=== PATIENT | female | born 1985 | race Caucasian/White ===

== ENCOUNTER 2019-05-27 17:14 | Emergency (ER) | payer BC, SELFPAY ==
[2019-05-27 17:22] VITALS: BP 126/83; PULSE 83; RESP 18; TEMP 36.6; O2SAT 96; BMI 35.4
--- NOTE | 2019-05-27 17:38 | ED_ITS ---
Entered by Yoselin Johnson, acting as scribe for HPI - Skin/Abscess/Foreign Bdy General: Chief complaint: Skin/Abscess/Foreign Body Stated complaint: head/neck pain Time Seen by Provider: 05/27/19 17:37 Source: patient Mode of arrival: ambulatory Limitations: no limitations History of Present Illness: HPI narrative: 33 yo female presents to ED with complaints of an abscess on the L side of her chin. She said she first noticed this 2 days ago. The patient states had a bump that she thought was a pimple but she said her normal remedies have not helped. She said she had spoke with Dr Novak and he wanted her to be a direct admit, but upon arrival she was instructed to come to the ED. She said she has not been able to eat because of the pain in her L lower jaw. complaint: abscess/boil Onset (ago): day(s) (2) Tetanus up to date: unsure Location: face Severity: moderate Quality: burning Pain Consistency: constant Relieving factors: none Exacerbating factors: movement Context: none Associated symptoms: Reports no associated symptoms; Deny chills, fever(s) or vomiting Treatments prior to arrival: attempted to drain pus at home and OTC topical medication Review of Systems General: Reports: 10 or more systems reviewed and unremarkable except in HPI and below Const: Denies: fever or chills Eyes: Denies: change in vision ENMT: Reports: mouth pain and facial/sinus pain Card: Denies: chest pain Resp: Denies: shortness of breath GI: Denies: abdominal pain, vomiting or diarrhea : Denies: difficulty urinating Musc: Denies: back pain or joint pain Skin/Breast: Reports: new lesion and non-healing lesion Neuro: Denies: headache Psych: Denies: depression Endo: Denies: excessive urination Ken/Lymph: Denies: easy bruising All/Imm: Denies: hives PFSH ED PFSH: Statuses (acute, chronic, etc) shown below reflect problem list status as previously entered and may not be historically accurate Medical History Cyst of face (Acute) Family History Denies family history of Anesthesia complication Bleeding disorder Social History Smoking and tobacco status: never smoked Second hand smoke exposure: No Alcohol intake: never Desire information about substance/drug rehabilitation?: No Adopted: No Caregiver/support person: Yes Lives independently: Yes Household members: spouse Housing: House Marital status: Highest education level completed: High School Graduate service: No Current occupational status: employed Current occupational exposures/hazards: No Pets and animals: Yes Pets & animals: dog(s) History of recent travel: No Sexually active: Yes Current gender identity: Female Nidhi/Mormonism: Restorationism Special nidhi needs: No Agree to transfusion: No Financial difficulty paying for basics: Decline to Answer Female Reproductive History: Para: 5 Spontaneous abortions: No Physical Exam Const: COMMON NORMALS: no apparent distress and healthy appearing HENMT: COMMON NORMALS: normocephalic and external nose normal HEAD & SCALP: normocephalic NOSE: external nose normal and no nasal discharge (nasal dischage) OTHER: No sign of Margarita's angina. Does have a 2 cm abscess over anterior chin. No difficulty swallowing or airway involvement Eye: COMMON NORMALS: PERRL PUPIL: Yes PERRL Neck/C-Spine: COMMON NORMALS: full ROM and no lymphadenopathy Chest: COMMONS NORMALS: inspection of chest normal Resp: COMMON NORMALS: normal respiratory effort and clear to auscultation bilaterally AUSCULTATION: clear to auscultation bilaterally Cardio: COMMON NORMALS: regular rate and regular rhythm RATE: regular rate RHYTHM: regular rhythm GI: COMMON NORMALS: soft to palpation PALPATION: Yes soft Extremity: COMMON NORMALS: normal to inspection, full ROM and normal capillary refill Psych: COMMON NORMALS: mental status grossly normal and cooperative Skin: COMMON NORMALS: no rashes or lesions noted GENERAL SKIN EXAM: no rashes or lesions noted Procedures Abscess I/D Site: face Local Anesthetic: lidocaine 1% and with epi Amount of anesthesia used (mL): 6 Technique: incised with #11 blade Amount of fluid expressed (mL): 3 Irrigation: No Packing used?: none Course Vital Signs: Vital signs: Vital Signs Temperature 98 F 05/27/19 17:22 Pulse Rate 83 05/27/19 17:22 Respiratory Rate 16 05/27/19 19:45 Blood Pressure 126/83 05/27/19 17:22 Pulse Oximetry 100 05/27/19 19:45 MDM - Skin/Abscess/Foreign Bdy MDM Narrative: Medical decision making narrative: Patient presents here with abscess to her chin. She has no signs of airway involvement no signs of Mario's angina. Patient given IV antibiotics here and will prescribe clindamycin for home. Patient is to follow-up with ENT in 3 to 5 days return if worsening. Lab Data: Labs: Lab Results 05/27/19 05/27/19 05/27/19 Range/Units 17:46 17:46 18:02 WBC 12.0 H (4.0-10.0) 10^3/ uL RBC 4.93 (4.1-5.3) 10^6/u L Hgb 14.6 (11.5-15.3) g/dL Hct 43.4 (37.0-47.0) % MCV 88.0 (81-99) fL MCH 29.6 (28.0-34.0) pg MCHC 33.6 (30.0-36.0) g/dL RDW 11.8 L (12.1-15.1) % Plt Count 291 (130-400) 10^3/c mm MPV 9.4 (7.4-10.4) fL Neut % (Auto) 69.6 % Lymph % (Auto) 17.3 % [place] % (Auto) 9.7 % Eos % (Auto) 2.3 % Baso % (Auto) 0.5 % Neut # (Auto) 8.4 H (1.8-7.7) 10^3/u L Lymph # (Auto) 2.1 (0.8-4.8) 10^3/u L [place] # (Auto) 1.2 H (0.2-0.9) 10^3/u L Eos # (Auto) 0.3 (0.0-0.8) 10^3/u L Baso # (Auto) 0.1 (0.0-0.1) 10^3/u L Nucleated RBC % (a uto) 0 % Nucleated RBCs # 0.0 /100WBC Sodium 137 (136-145) mmol/L Potassium 4.0 (3.5-5.1) mmol/L Chloride 102 (98-107) mmol/L Carbon Dioxide 21 L (22-29) mmol/L Anion Gap 18.0 (5-19) BUN 12 (6-20) mg/dL Creatinine 0.8 (0.5-0.9) mg/dL GFR Calculation 83.1 L (90-130) mL/min Glucose 94 (74-109) mg/dL Calculated Osmolal ity 280 L (285-295) mOsm/k g Calcium 9.9 (8.5-10.5) mg/dL HCG, Qual Negative (Negative) Discharge Plan Discharge Patient Disposition: Home, Self-Care Clinical Impression: Abscess Condition: Stable Prescriptions: New clindamycin HCl 300 mg capsule 300 mg PO Q8H 10 Days Qty: 30 RF: 0 Floyd 5-325 mg tablet 1 tab PO Q6H PRN (Reason: pain) Qty: 14 RF: 0 Discharge Orders: Discharge Order (Routine); Ordered 05/27/19 Ordered By: Kourtney Aldridge Referrals: Jake Bello M.D [Physician] - 4-7 days Jacques Alfredo [Primary Care Provider] - Discharge Diet: Advance as tolerated Discharge Activity: Resume usual activity Patient Instructions: Abscess (ED) Coding Level of Care Code ED Latex Foam Worker for Chg Fwd Exam Problem Focused The documentation recorded by the Alex fields Valerie R, accurately reflects the service I personally performed and the decisions made by Oly parisi Korby, MD May 27, 2019 17:14
--- NOTE | 2019-05-27 17:42 | CTR_ITS ---
PROCEDURE INFORMATION: Exam: CT Neck With Contrast Exam date and time: 05/27/2019 6:24 PM Age: 33 years old Clinical indication: Pain; Other: Chin abscess TECHNIQUE: Imaging protocol: Computed tomography images of the neck with intravenous contrast. Total DLP: 726.4 mGy-cm Radiation optimization: All CT scans at this facility use at least one of these dose optimization techniques: automated exposure control; mA and/or kV adjustment per patient size (includes targeted exams where dose is matched to clinical indication); or iterative reconstruction. Contrast material: OMNI 300; Contrast volume: 95 ml; Contrast route: IV; COMPARISON: US thyroid [id number] 09/20/2014 9:08 AM FINDINGS: Nasopharynx: See Soft Tissues Finding. Oropharynx: Unremarkable. No significant tonsillar enlargement. Hypopharynx: Unremarkable Larynx: Unremarkable. Normal epiglottis. Retropharyngeal space: Unremarkable. Submandibular/Parotid glands: Normal. Glands are normal in size. Thyroid: Normal. No enlarged or calcified nodules. Lymph nodes: Subcentimeter lymph nodes are noted in the neck especially in the submandibular region. Trachea: Visualized trachea is unremarkable. Lungs: Unremarkable as visualized. Bones/joints: Unremarkable. No acute fracture. Soft tissues: There is induration of the subcutaneous fat especially in the left submandibular region and along the left mandible. It does appear there is cellulitis. No peripherally enhancing fluid collection or abscess is identified. There is some asymmetry of the soft tissues at the base of the tongue on the right image 46. This may reflect some mild enlargement of the adenoids or early mass. Please correlate clinically. CT/CT neck w con* [id number] IMPRESSION: 1. Subcentimeter lymph nodes. Probable cellulitis adjacent to the mandible. No abscess. No bony destruction or osteomyelitis. 2. Mild asymmetry of the base of the tongue on the right may reflect mild enlargement of the adenoids however a small mass cannot be excluded. Please correlate clinically. Radiation Dose CTDIVOL = (mGy): DLP = 726.4 (mGy-cm)
[2019-05-27 18:01] LABS: Basophils # 0.1 10^3/uL (0.0-0.1); Basophils % 0.5 %; Eosinophils # 0.3 10^3/uL (0.0-0.8); Eosinophils % 2.3 %; Hematocrit 43.4 % (37.0-47.0); Hemoglobin 14.6 g/dL (11.5-15.3); Lymphocytes # 2.1 10^3/uL (0.8-4.8); Lymphocytes % 17.3 %; Mean Corpuscular HGB Conc 33.6 g/dL (30.0-36.0); Mean Corpuscular Hemoglobin 29.6 pg (28.0-34.0); Mean Platelet Volume 9.4 fL (7.4-10.4); Monocytes # 1.2 10^3/uL (0.2-0.9); Monocytes % 9.7 %; Neutrophils # 8.4 10^3/uL (1.8-7.7); Neutrophils % 69.6 %; Nucleated Red Blood Cells % 0 %; Platelet Count 291 10^3/cmm (130-400); Red Blood Count 4.93 10^6/uL (4.1-5.3); Red Cell Distribution Width 11.8 % (12.1-15.1)
[2019-05-27 18:15] LABS: Blood Urea Nitrogen 12 mg/dL (6-20); Calcium 9.9 mg/dL (8.5-10.5); Carbon Dioxide 21 mmol/L (22-29); Chloride 102 mmol/L (98-107); Glomerular Filtration Rate 83.1 mL/min (90-130); Glucose 94 mg/dL (74-109); Osmolality Calculated 280 mOsm/kg (285-295); Sodium 137 mmol/L (136-145)
[2019-05-27 18:20] LABS: HCG Qualitative Urine. Negative (Negative)
[2019-05-27] MEDS: iohexol 300 mg/mL 100 mL Btl 95 ML IV (19:19)
[2019-05-27] MEDS: sodium chloride 0.9% 1,000 ML 999 ML IV (19:44)
[2019-05-27 19:45] VITALS: RESP 16; O2SAT 100
[2019-05-27] MEDS: morphine 4 mg/mL SDV 1 mL IVP (19:45)
[2019-05-27] MEDS: ondansetron 2 mg/ML SDV 2 mL 4 MG IVP (19:45)
[2019-05-27] MEDS: lidocaine-prilocaine cream 5 gm 1 APPLIC TOPICAL (20:19)
[2019-05-27] MEDS: clindamycin 900 MG/50 ML PREMIX 100 MG IV (20:20)
[2019-05-27] MEDS: HYDROcodone-acetaminophen 5-325 mg Tablet 1 TAB PO (21:25)
[2019-05-27 22:07] VITALS: BP 134/81; PULSE 89; RESP 16; TEMP 37.1; O2SAT 99
== END 2019-05-27 21:28 | disposition home or self-care (01) ==
PROVIDERS: Emergency Provider Emergency Medicine; Family Provider Physician Assistant; PCP Physician Assistant
DX: L02.01 Cutaneous abscess of face (principal)
CPT/HCPCS: 10060; 70491; 80048; 81025; 85025; 96360; 96365; 96374; 99281; J2270; J2405; J3490; J7030; Q9967

== ENCOUNTER 2019-05-28 14:35 | Inpatient (IN) | payer BC, SELFPAY ==
[2019-05-28 10:59] VITALS: BMI 35.4
[2019-05-28] MEDS: sodium chloride 0.9% 1,000 ML 100 ML IV (11:13)
[2019-05-28 11:15] VITALS: BP 137/86; PULSE 81; RESP 18; TEMP 37.3; O2SAT 100
[2019-05-28] MEDS: clindamycin 900 MG/50 ML PREMIX 100 MG IV (11:35)
[2019-05-28] MEDS: HYDROcodone-acetaminophen 5-325 mg Tablet PO ×4 (11:40→22:30)
[2019-05-28 11:58] LABS: OR HCG Qualitative Urine Negative (Negative)
[2019-05-28 14:03] LABS: Basophils % 0.3 %; Eosinophils # 0.2 10^3/uL (0.0-0.8); Eosinophils % 1.7 %; Hematocrit 40.5 % (37.0-47.0); Hemoglobin 13.6 g/dL (11.5-15.3); Lymphocytes # 2.2 10^3/uL (0.8-4.8); Lymphocytes % 18.5 %; Mean Corpuscular HGB Conc 33.6 g/dL (30.0-36.0); Mean Corpuscular Hemoglobin 29.4 pg (28.0-34.0); Mean Corpuscular Volume 87.7 fL (81-99); Mean Platelet Volume 9.7 fL (7.4-10.4); Monocytes # 1.3 10^3/uL (0.2-0.9); Neutrophils # 8.1 10^3/uL (1.8-7.7); Neutrophils % 68.1 %; Nucleated Red Blood Cells % 0 %; Platelet Count 279 10^3/cmm (130-400); Red Blood Count 4.62 10^6/uL (4.1-5.3); Red Cell Distribution Width 11.7 % (12.1-15.1); White Blood Count 11.9 10^3/uL (4.0-10.0)
[2019-05-28 14:18] LABS: Alanine Aminotransferase 27 U/L (0-33); Albumin Level 4.1 g/dL (3.5-5.2); Alkaline Phosphatase 103 IU/L (35-105); Anion Gap 15.9 (5-19); Aspartate Amino Transferase 20 U/L (0-32); Blood Urea Nitrogen 8 mg/dL (6-20); C Reactive Protein 43.3 mg/L (0.0-4.9); Calcium 9.5 mg/dL (8.5-10.5); Carbon Dioxide 24 mmol/L (22-29); Chloride 102 mmol/L (98-107); Globulin 3.6 g/dL (1.3-4.6); Glomerular Filtration Rate 83.1 mL/min (90-130); Glucose 94 mg/dL (74-109); Potassium 3.9 mmol/L (3.5-5.1); Sodium 138 mmol/L (136-145); Total Bilirubin 0.5 mg/dL (0.15-1.2); Total Protein 7.7 g/dL (6.6-8.7)
--- NOTE | 2019-05-28 14:20 | PC.NURSE ---
The clindamycin was given as ordered by Dr Bautista at 1135am. I was unable to chart this medicine until much later and had them been discontinued by the hospitalist and another antibiotic ordered. hospitalist aware of medicine given.
--- NOTE | 2019-05-28 14:39 | PM.HP ---
Providers/Chief Complaint Admitting Physician: Robbi Higuera MD Primary Care Provider: Jacques Alfredo Chief Complaint: CYST WITH CELLULITIS History of Present Illness Cee Villalpando is a 33 year old female with no significant past medical history who presents to the emergency room due to a boil on her left chin that has evolved into the left chin, mandible, neck erythema, swelling, tenderness. Patient states that she has recurrent boils, that are typically managed as outpatient through simple I&D's. She does state 2 years ago she had a significant soft tissue infection resulting in bacteremia. States that on Friday, she noticed a pimple on her left chin, she stated that it slowly evolved into a boil, with surrounding erythema, swelling, tenderness. She presented to urgent care who referred her to the surgery clinic, where Dr. Payan recommended for her to be admitted. But due to unavailable hospital beds, patient was redirected to the emergency room, she saw the emergency room physician, who lanced the boil on her chin, kept it open, and advised her to continue clindamycin and follow-up with her primary care physician. However patient states that she had some drainage, from the area, the area of swelling, erythema, tenderness evolved to her left mandible down her left neck. Currently she is having a lot of pain and tenderness and swelling in that region. She is having some dysphasia, and a sour taste in her mouth, no pain with range of motion of the neck, no fevers, no chills, no nausea, no vomiting. Review of Systems Const: Denies: fever or chills Eyes: Denies: change in vision ENMT: Denies: throat pain or mouth pain Card: Denies: chest pain or palpitations Resp: Denies: shortness of breath GI: Denies: abdominal pain or vomiting : Denies: flank pain or difficulty urinating Musc: Denies: neck pain Skin/Breast: Reports: rash Neuro: Reports: headache Endo: Denies: excessive urination or excessive thirst Medications/Allergies Allergies Allergy/AdvReac Type Severity Reaction Status Date / Time diphenhydramine Allergy ALGY-Rash Verified 05/27/19 17:31 [From Benadryl] Penicillins Allergy ALGY-Rash Verified 05/27/19 17:31 PFSH Acute PFSH: Statuses (acute, chronic, etc) shown below reflect problem list status as previously entered and may not be historically accurate Medical History (Updated 05/28/19 @ 14:44 by Robbi Higuera MD) Cyst of face (Acute) Family History (Updated 05/28/19 @ 14:45 by Robbi Higuera MD) Other CAD (coronary artery disease) Denies family history of Anesthesia complication Bleeding disorder Social History Smoking and tobacco status: never smoked Second hand smoke exposure: No Alcohol intake: never Desire information about substance/drug rehabilitation?: No Adopted: No Caregiver/support person: Yes Lives independently: Yes Household members: spouse Housing: House Marital status: Highest education level completed: High School Graduate service: No Current occupational status: employed Current occupational exposures/hazards: No Pets and animals: Yes Pets & animals: dog(s) History of recent travel: No Sexually active: Yes Current gender identity: Female Nidhi/Restoration: Presybeterian Special nidhi needs: No Agree to transfusion: No Financial difficulty paying for basics: Decline to Answer Female Reporductive History: Para: 5 Spontaneous abortions: No Vitals/I&O/Wt Last Vital Signs Temp 99.1 F 05/28/19 11:15 Pulse 81 05/28/19 11:15 Resp 18 05/28/19 11:15 BP 137/86 05/28/19 11:15 Pulse Ox 100 05/28/19 11:15 05/27/19 05/28/19 05/28/19 22:59 06:59 14:59 Intake Total 50 / 50 Balance 50 / 50 Weight last 48 hrs Weight 90.718 kg Physical Exam Const: COMMON NORMALS: no apparent distress and oriented x3 GENERAL APPEARANCE: cooperative and comfortable HENMT: COMMON NORMALS: normocephalic HEAD & SCALP: normocephalic Eye: COMMON NORMALS: PERRL, EOMs intact bilaterally and no papilledema GENERAL EYE: normal appearance of both eyes PUPIL: Yes PERRL DIRECT OPHTHALMOSCOPY: Yes no papilledema Neck/C-Spine: COMMON NORMALS: full ROM, no lymphadenopathy, no JVD and thyroid normal THYROID: thyroid normal Lymph: LYMPHATIC: no lymphadenopathy noted Resp: COMMON NORMALS: normal respiratory effort, no retractions, no use of accessory muscles and clear to auscultation bilaterally AUSCULTATION: clear to auscultation bilaterally Cardio: COMMON NORMALS: no JVD, regular rate, regular rhythm, S1 normal heart sound, S2 normal heart sound, no gallops, no clicks and no murmurs RATE: regular rate RHYTHM: regular rhythm HEART SOUNDS: S1 normal and S2 normal GI: COMMON NORMALS: normal to inspection, nondistended, normoactive bowel sounds, soft to palpation, non-tender and no hepatosplenomegaly PALPATION: Yes soft and Yes no hepatosplenomegaly Extremity: COMMON NORMALS: normal to inspection, full ROM and no pedal edema Neuro: COMMON NORMALS: oriented x3, CN's II-XII intact bilaterally, moves all extremities and no focal motor deficits Psych: COMMON NORMALS: mental status grossly normal, thought process normal and cooperative THOUGHT PROCESS: normal thought process Skin: NARRATIVE SKIN EXAM: Under the chin, 3 x 3 cm open boil, with surrounding erythema, swelling, tenderness extending to the left mandible, down the left neck Data : 05/28/19 13:38 05/28/19 13:38 Micro: Microbiology 05/28/19 13:49 Blood Culture - Preliminary Blood SPECIMEN COLLECTED 05/28/19 13:38 Blood Culture - Preliminary Blood SPECIMEN COLLECTED Other CT: Radiologist's impression: Nasopharynx: See Soft Tissues Finding. Oropharynx: Unremarkable. No significant tonsillar enlargement. Hypopharynx: Unremarkable Larynx: Unremarkable. Normal epiglottis. Retropharyngeal space: Unremarkable. Submandibular/Parotid glands: Normal. Glands are normal in size. Thyroid: Normal. No enlarged or calcified nodules. Lymph nodes: Subcentimeter lymph nodes are noted in the neck especially in the submandibular region. Trachea: Visualized trachea is unremarkable. Lungs: Unremarkable as visualized. Bones/joints: Unremarkable. No acute fracture. Soft tissues: There is induration of the subcutaneous fat especially in the left submandibular region and along the left mandible. It does appear there is cellulitis. No peripherally enhancing fluid collection or abscess is identified. There is some asymmetry of the soft tissues at the base of the tongue on the right image 46. This may reflect some mild enlargement of the adenoids or early mass. Please correlate clinically. CT/CT neck w con* [id number] IMPRESSION: 1. Subcentimeter lymph nodes. Probable cellulitis adjacent to the mandible. No abscess. No bony destruction or osteomyelitis. 2. Mild asymmetry of the base of the tongue on the right may reflect mild enlargement of the adenoids however a small mass cannot be excluded. Please correlate clinically. A&P Assessment and plan (1) Cellulitis and abscess of neck: -Abscess and cellulitis under the chin, extending to the left mandible down the left neck -Based on how rapidly evolving, concerns for deep tissue infection -CT did show subcentimeter lymph nodes, cellulitis adjacent to the mandible, mild asymmetry at the base of the tongue on the right plan: -I have spoken to Dr. Ansari who is graciously offered to see the patient -Broad-spectrum antibiotics vancomycin and Zosyn -Blood cultures -Monitor clinical status -Keep her n.p.o. until evaluation by ENT Status: Acute Code(s): L03.221 - Cellulitis of neck; L02.11 - Cutaneous abscess of neck Attestations Medical Necessity Statement*: Patient requires hospitalization, inpatient, greater than 2 midnights for left neck cellulitis Coding Level of Care Code Acute Flight Reservations Manager for [facility] Diagnoses Cellulitis and abscess of neck L03.221; L02.11
[2019-05-28 14:50] LABS: Erythrocyte Sedimentation Rate 24 mm/hr (0-15)
[2019-05-28 15:17] VITALS: BP 126/79; PULSE 79; RESP 18; TEMP 36.9; O2SAT 99
--- NOTE | 2019-05-28 15:18 | PC.NURSE ---
REPORT GIVEN TO JAZZ PT TRANSFERRED TO ROOM [id number] WHEELCHAIR AND CARE TURNED OVER.
--- NOTE | 2019-05-28 17:04 | PM.CONSULT ---
Providers/Reason For Consult Consulting Physican/Specialty*: Dr. Vidal Ansari MD Reason for Consult*: Assess airway Attending Physician: Robbi Higuera MD Primary Care Provider: Jacques Alfredo History of Present Illness History of Present Illness Cee Villalpando is a 33 year old female who was well until 05/25/2019 when she developed a boil on her left chin that gradually became red, indurated, and tender over several days. She was seen in the ER where she had incision and drainage of the mass which reportedly had some pus present. She was then admitted and placed on IV Vancomycin and Zosyn. I was consulted to evaluate her airway. The patient has some difficulty swallowing, but is o/w without c/o today. She denies any shortness of breath, difficulty opening her mouth, chest pain, or other related symptoms. Review of Systems General: Reports: 10 or more systems reviewed and unremarkable except in HPI and below Meds/Allergies Home Medications and Allergies Allergies Allergy/AdvReac Type Severity Reaction Status Date / Time diphenhydramine Allergy ALGY-Rash Verified 05/27/19 17:31 [From Benadryl] Penicillins Allergy ALGY-Rash Verified 05/27/19 17:31 Current Medications Current Medications Generic Name Dose Route Start Last Admin Trade Name Freq PRN Reason Stop Dose Admin Hydrocodone Bitart/Acetaminophen 0 tab 05/28/19 11:20 05/28/19 16:57 Hulen 5-325 Mg PO 1 tab Q6H PRN Administration MODERATE PAIN Sodium Chloride 1,000 mls @ 100 mls/hr 05/28/19 11:00 05/28/19 11:13 Sodium Chloride 0.9% IV 100 mls/hr .Q10H BRITTNY Administration Imipenem/Cilastatin Sodium 500 100 mls @ 200 mls/hr 05/28/19 14:00 05/28/19 14:00 mg/ Sodium Chloride IV 200 mls/hr Q6H BRITTNY Administration Protocol Vancomycin HCl 1,500 mg/ 250 mls @ 166.667 mls/hr 05/28/19 16:00 05/28/19 16:17 Sodium Chloride IV 166.7 mls/hr Q12H BRITTNY Administration PFSH Acute PFSH: Statuses (acute, chronic, etc) shown below reflect problem list status as previously entered and may not be historically accurate Medical History Cyst of face (Acute) Family History (Updated 05/28/19 @ 14:45 by Robbi Higuera MD) Other CAD (coronary artery disease) Denies family history of Anesthesia complication Bleeding disorder Social History Smoking and tobacco status: never smoked Second hand smoke exposure: No Alcohol intake: never Desire information about substance/drug rehabilitation?: No Adopted: No Caregiver/support person: Yes Lives independently: Yes Household members: spouse Housing: House Marital status: Highest education level completed: High School Graduate service: No Current occupational status: employed Current occupational exposures/hazards: No Pets and animals: Yes Pets & animals: dog(s) History of recent travel: No Sexually active: Yes Current gender identity: Female Nidhi/Caodaism: Shinto Special nidhi needs: No Agree to transfusion: No Financial difficulty paying for basics: Decline to Answer Female Reporductive History: Date of last menstrual period: 05/05/19 Para: 5 Spontaneous abortions: No Vitals/I&O/Wt Last Vital Signs Temp 98.5 F 05/28/19 15:17 Pulse 79 05/28/19 15:17 Resp 18 05/28/19 15:17 BP 126/79 05/28/19 15:17 Pulse Ox 99 05/28/19 15:17 05/28/19 05/28/19 05/28/19 06:59 14:59 22:59 Intake Total 50 / 50 Balance 50 / 50 Weight last 48 hrs Weight 90.718 kg Physical Exam HENMT: COMMON NORMALS: normocephalic, external ears normal and external nose normal HEAD & SCALP: normal to inspection and normocephalic FACE & SINUS: normal facial exam (There is a 3cm area of induration, swelling, tenderness of left neck.) NOSE: external nose normal EXTERNAL EAR: Yes external ears normal Eye: COMMON NORMALS: conjunctivae normal CONJUNCTIVA: Yes conjunctivae normal Neck/C-Spine: GENERAL: Yes mass (Swelling, induration, and erythema of the submental neck as above.) Data Micro: Micro: Microbiology 05/28/19 13:49 Blood Culture - Pr eliminary Blood SPECIMEN [facility] ANTIONETTE 05/28/19 13:38 Blood Culture - Pr eliminary Blood SPECIMEN [facility] ANTIONETTE Imaging^: Other CT: My impression: Neck CT with IV contrast: Airway widely patent; no evidence of abscess collection; o/w as indicated on radiology report Other Data: Other data: Procedure 1: Written informed consent was obtained from the patient; the left submental swelling was prepped with alcohol, and was aspirated with a 22 gauge needle; no purulent material was obtained; the patient tolerated the procedure well, and there were no complications. Procedure 2: A flexible fiberoptic nasopharyngolaryngoscope was passed down the patient's right nasal cavity, and was used to make an inspection of the nasopharynx, oralpharynx, hypopharynx, and larynx; there was no noted swelling, and the airway was widely patent; the nasopharynx, oralpharynx, hypopharynx and larynx were normal without swelling or obstruction; the patient tolerated the procedure well, and there were no complications. A&P Additional A&P Information Impression: Left submental cellulitis with no evidenece of abscess formation by Neck CT or by needle aspiration Plan: I agree with the current antibiotic plan I recommend f/u neck CT after 48 hours of antibiotics to r/o abscess development Continue IV antibiotics until infection nearly resolved - then place on oral analog for an additional 10-14 days I will follow with you Consult Attestations Medical Necessity Statement: I was consulted to r/o an occult abscess and assess the patient's airway Coding Level of Care Code Acute Etl Manager for [facility]
[2019-05-28 20:00] VITALS: BP 115/77; PULSE 80; RESP 18; TEMP 36.8; O2SAT 98
[2019-05-28] MEDS: cetirizine 10 mg Tablet PO (23:38)
[2019-05-29] VITALS (7 sets, daily range): BP systolic 108–120; BP diastolic 57–78; PULSE 63–83; RESP 17–18; TEMP 36.6–36.9; O2SAT 96–98
[2019-05-29] MEDS: sodium chloride 0.9% 1,000 ML 100 ML IV (00:27)
[2019-05-29] MEDS: HYDROcodone-acetaminophen 5-325 mg Tablet PO ×4 (05:01→23:05)
[2019-05-29 06:42] LABS: Basophils % 0.3 %; Eosinophils # 0.4 10^3/uL (0.0-0.8); Eosinophils % 4.1 %; Hematocrit 38.8 % (37.0-47.0); Lymphocytes # 2.7 10^3/uL (0.8-4.8); Lymphocytes % 30.7 %; Mean Corpuscular HGB Conc 33.5 g/dL (30.0-36.0); Mean Corpuscular Hemoglobin 30.7 pg (28.0-34.0); Mean Corpuscular Volume 91.5 fL (81-99); Mean Platelet Volume 9.4 fL (7.4-10.4); Monocytes # 0.9 10^3/uL (0.2-0.9); Monocytes % 9.8 %; Neutrophils # 4.8 10^3/uL (1.8-7.7); Neutrophils % 54.6 %; Nucleated Red Blood Cells % 0 %; Platelet Count 256 10^3/cmm (130-400); Red Blood Count 4.24 10^6/uL (4.1-5.3); Red Cell Distribution Width 11.8 % (12.1-15.1); White Blood Count 8.7 10^3/uL (4.0-10.0)
[2019-05-29 06:58] LABS: Anion Gap 15.7 (5-19); Blood Urea Nitrogen 8 mg/dL (6-20); Calcium 9.2 mg/dL (8.5-10.5); Carbon Dioxide 23 mmol/L (22-29); Chloride 104 mmol/L (98-107); Glucose 141 mg/dL (74-109); Osmolality Calculated 286 mOsm/kg (285-295); Potassium 3.7 mmol/L (3.5-5.1); Sodium 139 mmol/L (136-145)
--- NOTE | 2019-05-29 14:10 | PM.PN ---
Subjective Subjective: Interval history: Morning patient denies fevers, chills, states that area of erythema and swelling has gone down, but still quite tender, having itching on during her chin, but overall has improved, drinking well, eating well Vitals/I&O/Wt Last Vital Signs Temp 98.0 F 05/29/19 11:39 Pulse 78 05/29/19 11:39 Resp 18 05/29/19 11:39 BP 113/57 05/29/19 11:39 Pulse Ox 97 05/29/19 11:39 05/28/19 05/29/19 05/29/19 22:59 06:59 14:59 Intake Total 1350 / 1500 100 / 1600 360 / 360 Output Total 600 / 600 600 / 600 Balance 1350 / 1500 -500 / 1000 -240 / -240 Weight last 48 hrs Weight 90.855 kg Weight 90.718 kg Physical Exam Const: COMMON NORMALS: no apparent distress and oriented x3 GENERAL APPEARANCE: cooperative and comfortable Neck/C-Spine: COMMON NORMALS: full ROM, no lymphadenopathy, no JVD and thyroid normal THYROID: thyroid normal Resp: COMMON NORMALS: normal respiratory effort, no retractions, no use of accessory muscles and clear to auscultation bilaterally AUSCULTATION: clear to auscultation bilaterally Cardio: COMMON NORMALS: no JVD, regular rate, regular rhythm, S1 normal heart sound, S2 normal heart sound, no gallops, no clicks and no murmurs RATE: regular rate RHYTHM: regular rhythm HEART SOUNDS: S1 normal and S2 normal GI: COMMON NORMALS: normal to inspection, nondistended, normoactive bowel sounds, soft to palpation, non-tender and no hepatosplenomegaly PALPATION: Yes soft and Yes no hepatosplenomegaly Extremity: COMMON NORMALS: normal to inspection, full ROM and no pedal edema Neuro: COMMON NORMALS: oriented x3 Skin: NARRATIVE SKIN EXAM: Under the chin, 3 x 3 cm open boil, with surrounding erythema, swelling, tenderness extending to the left mandible, down the left neck Data : 05/29/19 06:17 05/29/19 06:17 Micro: Microbiology 05/28/19 13:49 Blood Culture - Preliminary Blood SPECIMEN COLLECTED 05/28/19 13:38 Blood Culture - Preliminary Blood SPECIMEN COLLECTED A&P Assessment and plan (1) Cellulitis and abscess of neck: -Abscess and cellulitis under the chin, extending to the left mandible down the left neck -CT did show subcentimeter lymph nodes, cellulitis adjacent to the mandible, mild asymmetry at the base of the tongue on the right -Clinically has improved plan: -Dr. Ansari is on consult -Broad-spectrum antibiotics vancomycin and primaxin -Blood cultures -Monitor clinical status Status: Acute Code(s): L03.221 - Cellulitis of neck; L02.11 - Cutaneous abscess of neck Attestations Medical Necessity Statement*: Patient requires continued hospitalization due to cellulitis requiring IV antibiotic treatment Coding Level of Care Code Acute Guest Services for [facility] Fwd Diagnoses Cellulitis and abscess of neck L03.221; L02.11
[2019-05-30 03:18] LABS: Basophils % 0.5 %; Eosinophils # 0.5 10^3/uL (0.0-0.8); Eosinophils % 5.8 %; Hematocrit 38.6 % (37.0-47.0); Hemoglobin 12.8 g/dL (11.5-15.3); Lymphocytes # 2.7 10^3/uL (0.8-4.8); Lymphocytes % 34.3 %; Mean Corpuscular HGB Conc 33.2 g/dL (30.0-36.0); Mean Corpuscular Hemoglobin 29.4 pg (28.0-34.0); Mean Corpuscular Volume 88.7 fL (81-99); Mean Platelet Volume 9.3 fL (7.4-10.4); Monocytes # 0.8 10^3/uL (0.2-0.9); Monocytes % 9.6 %; Neutrophils # 3.9 10^3/uL (1.8-7.7); Neutrophils % 49.3 %; Nucleated Red Blood Cells % 0 %; Platelet Count 284 10^3/cmm (130-400); Red Blood Count 4.35 10^6/uL (4.1-5.3); Red Cell Distribution Width 11.5 % (12.1-15.1); White Blood Count 7.8 10^3/uL (4.0-10.0)
[2019-05-30 03:41] LABS: Anion Gap 15.3 (5-19); Blood Urea Nitrogen 12 mg/dL (6-20); Calcium 9.2 mg/dL (8.5-10.5); Carbon Dioxide 25 mmol/L (22-29); Chloride 105 mmol/L (98-107); Glomerular Filtration Rate 83.1 mL/min (90-130); Glucose 108 mg/dL (74-109); Osmolality Calculated 289 mOsm/kg (285-295); Potassium 4.3 mmol/L (3.5-5.1); Sodium 141 mmol/L (136-145)
[2019-05-30 03:42] LABS: Vancomycin Trough 16.1 ug/mL (10-15)
[2019-05-30 04:00] VITALS: BP 108/72; PULSE 76; RESP 18; TEMP 37.2; O2SAT 97
[2019-05-30] MEDS: HYDROcodone-acetaminophen 5-325 mg Tablet PO ×2 (05:28→11:19)
--- NOTE | 2019-05-30 07:14 | CTR_ITS ---
PROCEDURE INFORMATION: Exam: CT Neck With Contrast Exam date and time: 05/30/2019 7:25 AM Age: 33 years old Clinical indication: Cellulitis of neck; Additional info: Follow up upper neck and chin cellulitis TECHNIQUE: Imaging protocol: Computed tomography images of the neck with intravenous contrast. Total DLP: 693.12 mGy-cm Radiation optimization: All CT scans at this facility use at least one of these dose optimization techniques: automated exposure control; mA and/or kV adjustment per patient size (includes targeted exams where dose is matched to clinical indication); or iterative reconstruction. Contrast material: Omnipaque 300; Contrast volume: 95 ml; Contrast route: IV; COMPARISON: CT neck w con* [id number] 05/27/2019 7:32 PM FINDINGS: Sinuses: Mild leftward upper thoracic and partially imaged rightward midthoracic spinal curvature. Nasal cavity: Metallic ornament left nostril. Nasopharynx: Unremarkable. Oropharynx: Unremarkable. No significant tonsillar enlargement. Hypopharynx: Unremarkable Larynx: Unremarkable. Normal epiglottis. Retropharyngeal space: Unremarkable. Submandibular/Parotid glands: Small bilateral intraparotid fatty replaced lymph nodes. Thyroid: Normal. No enlarged or calcified nodules. Lymph nodes: Left level 2/3 lymph node measuring 7.6 mm short axis. Right level 2 lymph node measuring 8.6 mm short axis. 7.9 mm short axis right anterior submandibular lymph node. Smaller left anterior submandibular lymph nodes. Fatty replaced right posterior submandibular lymph node measuring 8.9 mm short axis. Trachea: Visualized trachea is unremarkable. Lungs: Unremarkable as visualized. Bones/joints: No destructive bony process identified. Soft tissues: Subcutaneous edema left anterior submandibular region, likely with focal skin ulceration (series 601, image 76). CT/CT neck w con* [id number] IMPRESSION: 1. Subcutaneous edema left anterior submandibular region. Cellulitis not excluded. Clinical correlation is recommended. 2. Mild bilateral upper cervical lymphadenopathy. Radiation Dose CTDIVOL = (mGy): DLP = 693.12 (mGy-cm)
[2019-05-30] MEDS: iodixanol 320 mg/mL 100mL Btl IV (07:45)
[2019-05-30 08:00] VITALS: BP 108/68; BP 112/76; PULSE 74; PULSE 82; RESP 18; TEMP 36.3; TEMP 37.1; O2SAT 96
[2019-05-30 11:28] VITALS: BP 116/80; PULSE 71; RESP 20; TEMP 37; O2SAT 98
--- NOTE | 2019-05-30 12:12 | P.DS_ITS ---
Discharge Providers Date of Admission: 05/28/19 14:35 Date of Discharge: 05/30/19 Attending Provider at Admission: Robbi Higuera MD Attending Provider at Discharge: Robbi Higuera MD Primary Care Provider: Jacques Alfredo Diagnoses at Discharge Discharge Diagnosis (1) Cellulitis and abscess of neck: Status: Acute Reason for Visit Reason for Visit: Reason For Visit: CYST WITH CELLULITIS Hospital Course Hospital Course: Cee Villalpando is a 33 year old female with no significant past medical history who presents to the emergency room due to a boil on her left chin that has evolved into the left chin, mandible, neck erythema, swelling, tenderness. Patient states that she has recurrent boils, that are typically managed as outpatient through simple I&D's. She does state 2 years ago she had a significant soft tissue infection resulting in bacteremia. States that on Friday, she noticed a pimple on her left chin, she stated that it slowly evolved into a boil, with surrounding erythema, swelling, tenderness. She presented to urgent care who referred her to the surgery clinic, where Dr. Payan recommended for her to be admitted. But due to unavailable hospital beds, patient was redirected to the emergency room, she saw the emergency room physician, who lanced the boil on her chin, kept it open, and advised her to continue clindamycin and follow-up with her primary care physician. However patient states that she had some drainage, from the area, the area of swelling, erythema, tenderness evolved to her left mandible down her left neck Discharge Summary: Patient was admitted for left submental cellulitis with no evidence of abscess formation on neck CT. She received broad-spectrum antibiotics, Dr. Ansari from ENT was consulted, who recommended to continue antibiotic treatment, and to repeat CT in 48 hours. In addition he also performed a nasopharyngeal laryngoscopy, which showed no significant swelling in the oropharynx or hypopharynx or larynx. Repeat CT scan continued to show subcutaneous edema along the left anterior submandibular region, mild with bilateral upper cervical lymphadenopathy, no underlying abscess. Clinically area of cellulitis has significantly improved, and was only minimal. Patient was discharged on doxycycline and Flagyl for total of 12 days. Followed by doxycycline once daily for hidradenitis suppurativa, with a follow-up with her primary care provider 1 month. Patient was also advised to follow-up with Dr. Ansari in 1 week. Physical Exam Const: COMMON NORMALS: no apparent distress and oriented x3 GENERAL APPEARANCE: cooperative and comfortable HENMT: COMMON NORMALS: normocephalic HEAD & SCALP: normocephalic Neck/C-Spine: COMMON NORMALS: full ROM, no lymphadenopathy, no JVD and thyroid normal THYROID: thyroid normal Lymph: LYMPHATIC: no lymphadenopathy noted Resp: COMMON NORMALS: normal respiratory effort, no retractions, no use of accessory muscles and clear to auscultation bilaterally AUSCULTATION: clear to auscultation bilaterally Cardio: COMMON NORMALS: no JVD, regular rate, regular rhythm, S1 normal heart sound, S2 normal heart sound, no gallops, no clicks and no murmurs RATE: regular rate RHYTHM: regular rhythm HEART SOUNDS: S1 normal and S2 normal GI: COMMON NORMALS: normal to inspection, nondistended, normoactive bowel sounds, soft to palpation, non-tender and no hepatosplenomegaly PALPATION: Yes soft and Yes no hepatosplenomegaly Neuro: COMMON NORMALS: oriented x3 Skin: NARRATIVE SKIN EXAM: Under the chin, 3 x 3 cm open boil, with surrounding erythema, swelling, tenderness significantly reduced, only minimal at this time Discharge Data Data Completed and Pending: Completed Studies During Hospitalization Category Date Time Status CT neck w con* [id number] Stat Cat Scan 05/30/19 07:14 Completed Pending at discharge Category Date Time Status Basic Metabolic P erich AM LABS Lab 05/31/19 04:00 Ordered Blood Culture Sta t Lab 05/28/19 13:49 Results Complete Blood Co unt w/Auto AM LABS Lab 05/31/19 04:00 Ordered Labs from last 24 hours 05/30/19 05/30/19 05/30/19 03:16 03:16 03:16 WBC 7.8 RBC 4.35 Hgb 12.8 Hct 38.6 MCV 88.7 MCH 29.4 MCHC 33.2 RDW 11.5 L Plt Count 284 MPV 9.3 Neut % (Auto) 49.3 Lymph % (Auto) 34.3 [place] % (Auto) 9.6 Eos % (Auto) 5.8 Baso % (Auto) 0.5 Neut # (Auto) 3.9 Lymph # (Auto) 2.7 [place] # (Auto) 0.8 Eos # (Auto) 0.5 Baso # (Auto) 0.0 Nucleated RBC % (a uto) 0 Nucleated RBCs # 0.0 Sodium 141 Potassium 4.3 Chloride 105 Carbon Dioxide 25 Anion Gap 15.3 BUN 12 Creatinine 0.8 GFR Calculation 83.1 L Glucose 108 Calculated Osmolal ity 289 Calcium 9.2 Vancomycin Trough 16.1 H Vitals: Last Vital Signs Temp 98.6 F 05/30/19 11:28 Pulse 71 05/30/19 11:28 Resp 20 H 05/30/19 11:28 BP 116/80 05/30/19 11:28 Pulse Ox 98 05/30/19 11:28 Discharge Plan Discharge Patient Disposition: Home, Self-Care Condition: Stable Prescriptions: New Itch Relief 2-0.1 % Cream 1 applic topical Q4H PRN (Reason: Itching) Qty: 28 RF: 0 hydroxyzine HCl 10 mg Tablet 20 mg PO BID PRN (Reason: Itching) 5 Days Qty: 10 RF: 0 doxycycline hyclate 100 mg tablet 100 mg PO BID 30 Days Qty: 42 RF: 0 chlorhexidine gluconate [Hibiclens] 4 % liquid 1 applic TOPICAL DAILY PRN (Reason: boils) 30 Days Qty: 3785 RF: 0 Flagyl 500 mg tablet 500 mg PO Q8H 12 Days Qty: 36 RF: 0 Continued hydrocodone-acetaminophen [[place]] 5-325 mg tablet 1 tab PO Q6H PRN (Reason: pain) Qty: 14 RF: 0 Discharge Orders: Discharge Order (Routine); Ordered 05/30/19 Ordered By: Robbi Higuera Referrals: Vidal Ansari MD [Physician] - 1 week Robbi Higuera MD [Hospitalist] - 1 month Discharge Diet: Advance as tolerated Discharge Activity: Resume usual activity Patient Instructions: Cellulitis (DC), Furunculosis and Carbunculosis (DC) Activity Restrictions/Additional Instructions: -Please use antibiotics as prescribed -Continue doxycycline once daily for hidradenitis suppurativa -Please use Hibiclens for topical boils -Benadryl for itching -Hydroxyzine for itching Discharge Attestations Time Spent in Discharge Care*: less than 30 min Quality Metrics Clinical Quality Measures During this hospital stay, did patient experience: None Coding Level of Care Code Acute Compensation Consultant for [facility] Fwd Diagnoses Cellulitis and abscess of neck L03.221; L02.11
[2019-05-30 14:01] VITALS: BP 116/80; PULSE 71; RESP 20; TEMP 37; O2SAT 98
--- NOTE | 2019-05-30 14:23 | P.PN_ITS ---
Subjective Subjective: Interval history: 33 yo wf who was admitted for left submental cellulitis. The patient has improved significantly on IV antibiotics and is ready for discharge. She is without c/o today, although she has persistent, but improved tenderness in the area of concern. Vitals/I&O/Wt Last Vital Signs Temp 98.6 F 05/30/19 14:01 Pulse 71 05/30/19 14:01 Resp 20 H 05/30/19 14:01 BP 116/80 05/30/19 14:01 Pulse Ox 98 05/30/19 14:01 05/29/19 05/30/19 05/30/19 22:59 06:59 14:59 Intake Total 1930 / 2390 820 / 3210 1630 / 1630 Output Total 800 / 1400 1300 / 2700 800 / 800 Balance 1130 / 990 -480 / 510 830 / 830 Weight last 48 hrs Weight 91.081 kg Weight 90.855 kg Physical Exam HENMT: COMMON NORMALS: normocephalic, hearing grossly normal bilaterally, external ears normal and external nose normal HEAD & SCALP: normocephalic FACE & SINUS: normal facial exam NOSE: external nose normal EXTERNAL EAR: Yes external ears normal MOUTH: oral and palatal mucosa normal Eye: COMMON NORMALS: conjunctivae normal CONJUNCTIVA: Yes conjunctivae n ormal Neck/C-Spine: COMMON NORMALS: no lymphadenopathy, supple and thyroid normal GENERAL: Yes anterior neck swelling (Significantly improved.) THYROID: thyroid normal Lymph: LYMPHATIC: no lymphadenopathy noted Data : 05/30/19 03:16 05/30/19 03:16 Micro: Microbiology 05/28/19 13:49 Blood Culture - Preliminary Blood NEGATIVE TO DATE 05/28/19 13:38 Blood Culture - Preliminary Blood NEGATIVE TO DATE Attestation for Other Data: I personally reviewed and interpreted the following: (Neck CT scan: 05/30/2019) A&P Additional A&P Information Impression: Resolving left submental cellulitis Plan: I agree with plan to place patient on oral Levaquin, Flagyl, and Doxycycline She is to be discharged to home She will f/u in my office on 06/04/2019 @ 1300 hours The patient is to contact Dr. 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
== END 2019-05-30 15:34 | disposition home health service (06) | DRG 603 ==
LOC: MEDSURG 14:35
PROVIDERS: Surgery; Admitting Provider Family Medicine; Family Provider Physician Assistant; PCP Physician Assistant; Visit Provider Family Medicine
DX: L03.221 Cellulitis of neck (principal); L73.2 Hidradenitis suppurativa
CPT/HCPCS: 12345; 36415; 70491; 80048; 80053; 80202; 84703; 85025; 85651; 86140; 87040; 96365; 96367; J0743; J3370; J3490; J7030; J7050; Q9967

== ENCOUNTER → 2020-01-14 09:02 | Outpatient (BNVA) | payer BC, SELFPAY | PROVIDERS: Family Provider Physician Assistant; PCP Nurse Practitioner; Visit Provider Internal Medicine | DX: Z11.59 Encounter for screening for other viral diseases (principal) | CPT/HCPCS: 87635 ==

== ENCOUNTER → 2020-01-20 11:34 | Outpatient (BNVA) | payer BC, SELFPAY | PROVIDERS: Family Provider Physician Assistant; PCP Nurse Practitioner; Visit Provider Obstetrics & Gynecology | DX: Z11.59 Encounter for screening for other viral diseases (principal) | CPT/HCPCS: 87635 ==

== ENCOUNTER 2020-01-25 07:11 | Day surgery (SDC) | payer BC, SELFPAY ==
[2020-01-14 11:48] VITALS: BMI 35.4
--- NOTE | 2020-01-14 12:08 | ANES.PREANE2 ---
Pre-Anesthetic Assessment Pre-Anesthetic Assessment: Height/Weight: Height 1.57 m Weight 87.997 kg Preop Diagnosis: Undesired fertility Proposed Procedure: Operation Date: 01/18/20 11:30 Proposed Procedures p Lap Fulg,Removal of Tubes Sterilization 29492 [id number] Z30.9(Not Applicable) - Jacques Borrego MD s Hysteroscopic IUD Removal(Not Applicable) - Jacques Borrego MD Familial anesthetic complications: None Was Beta Nitza taken within 24 hours: N/A Social: Social History: No alcohol and No tobacco Exam: Pre-Anes Outpt Exam: alert, oriented x 3, clear to auscultation bilaterally and regular rate & rhythm Airway: Cervical ROM: WNL MP: 3 Dentition: Full Pulmonary: Pulmonary: Asthma (exercise-induced asthma) Anesthetic Plan: ASA status: 1 Anesthesia: General Risk of > 500 ml blood loss (7ml/kg in children): No PFSH Anesthesia PFSH: Medical History Migraine headache Recurrent boils Surgical History (Updated 01/05/20 @ 14:58 by Jacques Borrego MD) No pertinent past surgical history Family History Father Heart disease Diabetes Mother Thyroid disease Grandfather Colon cancer maternal Heart disease paternal Social History Smoking and tobacco status: never smoked Second hand smoke exposure: No Alcohol intake: never Desire information about substance/drug rehabilitation?: No Marital status: History of recent travel: No Nidhi/Adventist: Yazidi Female Reproductive History: Date of last menstrual period: 12/18/19 Para: 5 Spontaneous abortions: No Data Anesthesia Cardiac Studies: No Data to Display
[2020-01-24 08:33] VITALS: BMI 35.4
[2020-01-25] VITALS (7 sets, daily range): BP systolic 102–138; BP diastolic 62–105; PULSE 58–86; RESP 13–21; TEMP 36.2–36.3; O2SAT 97–100
[2020-01-25 07:44] LABS: OR HCG Qualitative Urine Negative (Negative)
--- NOTE | 2020-01-25 07:55 | W.PM.OPSUD ---
Surgery/Procedure H&P Update DATE OF PROCEDURE: January 25, 2020 DATE H&P PERFORMED: 01/05/20 H&P UPDATE INFORMATION: I have reviewed H&P completed within last 30 days, I have examined patient prior to procedure, No changes to prior documentation and H&P is in [facility] EMR on date indicated PREOP DIAGNOSIS: Undesired fertility PLANNED PROCEDURE: Operation Date: 01/25/20 08:30 Proposed Procedures p Lap Fulg,Removal of Tubes Sterilization [id number] Z30.9(Not Applicable) - Jacques Borrego MD s Hysteroscopic IUD Removal(Not Applicable) - Jacques Borrego MD
[2020-01-25] MEDS: sodium chloride 0.9% 1,000 ML 30 ML IV (08:02)
[2020-01-25] MEDS: ketorolac 30 mg/mL INJ IVP (08:04)
[2020-01-25] MEDS: midazolam 1 mg/mL INJ 2 mL 2 MG IVP (08:05)
--- NOTE | 2020-01-25 08:23 | P.ANESUD_ITS ---
Pre-Anesthetic Update Pre-Anesthetic Assessment: Date of Surgery/Procedure: 01/25/20 Preop Odalis gnosis: Undesired fertility Proposed Procedure: Operation Date: 01/25/20 08:30 Proposed Procedures p Lap Fulg,Removal of Tubes Sterilization [id number] Z30.9(Not Applicable) - Jacques Borrego MD s Hysteroscopic IUD Removal(Not Applicable) - Jacques Borrego MD Any changes to Pre-Anesthetic Assessment?: Yes Changes from Pre-Anesthetic Assessment: Patient off phentermine > 7 days also admits now to having exercise induced asthma which no longer requires use of inhaler Last Intake: Intake Last Liquid Date 01/24/20 Last Liquid Time 23:30 Last Solid Date 01/24/20 Last Solid Time 19:30 Labs Last 48hrs: Laboratory Results - last 48 hr 01/25/20 07:16 Urine HCG, Qual Negative Vitals: Pulse Rate 85 01/25/20 07:35 Pulse Rhythm 01/25/20 07:29 Pulse Strength 3+ Normal 01/25/20 07:29 Respiratory Rate 16 01/25/20 07:35 Blood Pressure 138/105 01/25/20 07:35 Blood Pressure Kimberly n 116 01/25/20 07:35 Pulse Oximetry 99 01/25/20 07:35 Oxygen Delivery Me thod 01/25/20 07:35 Exam: Pre-Anes Outpt Exam: alert, oriented x 3, clear to auscultation bilaterally and regular rate & rhythm Cardiac Studies: No Data to Display
--- NOTE | 2020-01-25 10:03 | PM.OP ---
Operative Report Date of procedure: January 25, 2020 Pre-op Diagnosis: Undesired fertility Post-op Diagnosis: Undesired fertility Procedure Done: Laparoscopic bilateral tubal fulguration with complete salpingectomy Specimens removed/disposition: Right and left fallopian tubes Surgeon: Jacques Borrego Radiology Director: None Anesthesia: General Estimated blood loss (mL): 5 IV fluids (mL): 900 Urine output (mL): 100 Complications: None Findings: Second-degree uterine prolapse. No tubal, ovarian, uterine, or pelvic peritoneal abnormalities noted. Brief History: Patient is a 34-year-old white female 5, para 3-1-1-5 (1 set of twins) who presented to the office on 01/05/2020 to discuss tubal ligation. She currently has a ParaGard IUD for control. She was adamant that she did not want any further children and wanted to proceed with sterilization. Different sterilization methods were discussed with patient. Permanence of sterilization was reviewed with patient. The inability of complete salpingectomy to be reversed was discussed. Questions were answered. She wishes to have both tubes removed. Procedure: Patient was taken to the operating room were general anesthesia was obtained. She was prepped and draped in the usual sterile fashion in the dorsal supine position with legs in Louis style stirrups. Sequential compression boots were placed prior to starting the case. Catheter was inserted and bladder was drained. Exam under anesthesia was performed and patient was found to have second-degree uterine prolapse. Weighted speculum was placed in the vagina and the cervix was grasped with a single-tooth tenaculum. IUD string was identified. It was grasped with a ring forceps and easily removed. A ZUMI was placed. The infraumbilical region was injected with 1% lidocaine with epinephrine. Skin incision was made with the knife in the lower edge of the navel and a size 5 trocar and sheath were inserted under direct visualization using an Optiview type technique. Trocar was removed and replaced with a laparoscope confirming intra-abdominal placement. The abdomen was inflated with carbon dioxide. The anterior abdominal wall was inspected and was noted to be free of adhesions. In the left and right lower quadrants lateral to the inferior epigastric vessels, the skin was injected with 1% lidocaine with epinephrine. Skin incisions were made with a knife and a 5 mm trocar and sheath were inserted under direct visualization at each site. The pelvis was thoroughly inspected and appeared normal. Using the Voyant sealing device, starting on the left side at the fimbriated end of the tube, the mesosalpinx was sealed and cut along the length of the tube. At the proximal end of the tube, the tube itself was sealed and cut. The fallopian tube was brought out through the port. Using the Voyant sealing device, starting on the right side at the fimbriated end of the tube, the mesosalpinx was sealed and cut along the length of the tube. At the proximal end of the tube, the tube itself was sealed and cut. The fallopian tube was brought out through the port. The dissection area was thoroughly inspected and noted to be hemostatic. The abdomen was deflated and the ports removed. Skin was reapproximated with skin glue. The ZUMI was removed and there was minimal bleeding from the tenaculum site. Patient tolerated the procedure well. Sponge, needle and instrument counts were correct. DRAINS: None POSTOPERATIVE STATUS: The patient was transferred to the recovery room in satisfactory condition. DISPOSITION: Discharge to home when criteria was met. FOLLOWUP APPOINTMENT: Patient to follow-up in the office in approximately 2 weeks. MEDICATIONS: Patient received prescriptions for: [place] 5/325, 1 to 2 tablets every 6 hours as needed for pain, dispense 20, 0 refills Ibuprofen 800 mg, 1 tablet 3 times a day as needed for pain, #30, 0 refills
[2020-01-25] MEDS: ondansetron 2 mg/ML SDV 2 mL 4 MG IVP ×2 (10:16→10:21)
--- NOTE | 2020-01-25 11:10 | ANE.PACU2 ---
Inpatient post-anesthesia follow up: Airway intact: Yes Vital signs: Temperature 97.4 F Pulse Rate 58 Respiratory Rate 16 Blood Pressure 107/68 Pulse Oximetry 100 Oxygen Delivery Me thod Room Air Oxygen Flow Rate 8 Fraction of Inspir ed Oxygen Hydration adequate: Yes Nausea and vomiting: No Pain level: 1 Mental status: Baseline
== END 2020-01-25 11:07 | disposition home or self-care (01) ==
PROVIDERS: PCP Nurse Practitioner; Visit Provider Obstetrics & Gynecology
PROC: (CPT 58661; principal; 2020-01-25 08:30)
PROC: 0UPD8HZ Removal of Contraceptive Device from Uterus and Cervix, Via Natural or Artificial Opening Endoscopic (ICD-10-PCS; CPT 58301; 2020-01-25 08:30)
DX: Z30.2 Encounter for sterilization (principal)
CPT/HCPCS: 58670; 12345; 81025; 84703; 88302; J1100; J1885; J2250; J2405; J2704; J2710; J3010; J3490; J7030

== ENCOUNTER → 2020-02-14 14:28 | Outpatient (BNVA) | payer SELFPAY | PROVIDERS: PCP Nurse Practitioner; Visit Provider Nurse Practitioner | DX: R39.9 Unspecified symptoms and signs involving the genitourinary system (principal) | CPT/HCPCS: 81000; 87086 ==

== ENCOUNTER → 2020-03-29 17:56 | Outpatient (BNVA) | payer SELFPAY | PROVIDERS: PCP Nurse Practitioner; Visit Provider Nurse Practitioner Family | DX: N39.0 Urinary tract infection, site not specified (principal); B37.3 Candidiasis of vulva and vagina | CPT/HCPCS: 81000 ==

== ENCOUNTER → 2020-04-11 14:55 | Outpatient (BNVA) | payer SELFPAY | PROVIDERS: PCP Nurse Practitioner; Visit Provider Family Medicine | DX: Z20.828 Contact with and (suspected) exposure to other viral communicable diseases (principal) | CPT/HCPCS: 87635 ==

== ENCOUNTER → 2020-04-25 14:52 | Outpatient (BNVA) | payer SELFPAY | PROVIDERS: PCP Nurse Practitioner | DX: J32.9 Chronic sinusitis, unspecified (principal); J02.9 Acute pharyngitis, unspecified | CPT/HCPCS: 87071; 87880 ==

== ENCOUNTER → 2020-08-07 09:27 | Outpatient (BNVA) | payer OTHER, SELFPAY | PROVIDERS: PCP Family Medicine; Visit Provider Family Medicine | DX: F32.9 Major depressive disorder, single episode, unspecified (principal); R53.83 Other fatigue; Z13.6 Encounter for screening for cardiovascular disorders | CPT/HCPCS: 80053; 80061; 84439; 84443; 85025 ==

== ENCOUNTER → 2020-10-26 13:52 | Outpatient (BNVA) | payer OTHER, SELFPAY | PROVIDERS: PCP Family Medicine; Visit Provider Family Medicine | DX: R30.0 Dysuria (principal) | CPT/HCPCS: 81000; 87086 ==

== ENCOUNTER → 2020-12-21 09:38 | Outpatient (BNVA) | payer OTHER, SELFPAY | PROVIDERS: PCP Family Medicine; Visit Provider Family Medicine | DX: Z20.822 Contact with and (suspected) exposure to COVID-19 (principal) | CPT/HCPCS: 87635 ==

== ENCOUNTER → 2021-01-12 09:45 | Outpatient (BNVA) | payer OTHER, SELFPAY | PROVIDERS: PCP Family Medicine; Visit Provider Family Medicine Adult Medicine | DX: N39.0 Urinary tract infection, site not specified (principal); E66.01 Morbid (severe) obesity due to excess calories; Z98.51 Tubal ligation status; Z68.41 Body mass index [BMI] 40.0-44.9, adult; Z71.89 Other specified counseling | CPT/HCPCS: 81000 ==

== ENCOUNTER → 2021-02-01 13:13 | Outpatient (BNVA) | payer OTHER, SELFPAY | PROVIDERS: PCP Family Medicine; Referring Provider Family Medicine Adult Medicine; Visit Provider Nurse Practitioner Family | DX: N39.0 Urinary tract infection, site not specified (principal) | CPT/HCPCS: 81003 ==

== ENCOUNTER → 2021-02-08 10:18 | Outpatient (BNVA) | payer OTHER, SELFPAY | PROVIDERS: PCP Family Medicine; Visit Provider Family Medicine | DX: J02.9 Acute pharyngitis, unspecified (principal) | CPT/HCPCS: 87071; 87880 ==

== ENCOUNTER → 2021-03-22 15:34 | Outpatient (BNVA) | payer OTHER, SELFPAY | PROVIDERS: PCP Family Medicine; Visit Provider Nurse Practitioner Family | DX: N39.0 Urinary tract infection, site not specified (principal) | CPT/HCPCS: 81003; 87086 ==

== ENCOUNTER → 2021-04-04 13:41 | Outpatient (BNVA) | payer OTHER, SELFPAY | PROVIDERS: PCP Family Medicine; Visit Provider Nurse Practitioner Family | DX: N39.0 Urinary tract infection, site not specified (principal) | CPT/HCPCS: 81003 ==

== ENCOUNTER → 2021-10-16 13:26 | Outpatient (BNVA) | payer OTHER, SELFPAY | PROVIDERS: PCP Family Medicine; Visit Provider Urology | DX: N39.0 Urinary tract infection, site not specified (principal) | CPT/HCPCS: 81003; 87086 ==

== ENCOUNTER 2022-01-09 07:40 | Emergency (ER) | payer OTHER, SELFPAY ==
[2022-01-09 07:46] VITALS: BP 143/93; PULSE 76; RESP 18; TEMP 36.7; O2SAT 97
--- NOTE | 2022-01-09 08:51 | W.ED.EYEPROB ---
HPI - Eye Problem General: Chief complaint: Eye Problems Stated complaint: Swollen Eyes Time Seen by Provider: 01/09/22 08:27 History of Present Illness: Patient is a 36-year-old female comes to the ED with eye redness and pain. Patient wears contacts. She states that yesterday is when her symptoms started. She has been having bad allergies for the past couple weeks and yesterday she started developing some eye redness and pain bilaterally. Pain in left eye is worse than pain in her right eye. She says she is having a lot of excessive watering of her eyes which causes blurry vision. Any light causes eye pain. Denies any foreign body or injury to eyes. Patient states that she takes her contacts out every night and does not sleep in her contacts and does not leave them in for multiple days. Associated symptoms: Denies fever(s), headache(s), nausea, neck pain or vomiting Review of Systems Const: Denies: fever(s), chills or fatigue Eyes: Reports: photophobia (Bilateral), eye discomfort (Bilateral eye pain), eye redness (Bilateral eye redness) and increased production of tears; Denies: change in vision ENMT: Denies: throat pain, odynophagia, nasal discharge or nasal congestion Card: Denies: chest pain, palpitations, edema, swelling of feet/ankles, dyspnea on exertion or orthopnea Resp: Denies: dyspnea, productive cough or non-productive cough GI: Denies: abdominal pain, nausea, vomiting, diarrhea, constipation or hematochezia : Denies: flank pain, dysuria or hematuria Musc: Denies: neck pain, back pain or extremity swelling Skin/Breast: Denies: rash or new lesions Neuro: Denies: headache(s), numbness in extremities or weakness in extremities PFS ED PFSH: Medical History (Updated 01/09/22 @ 08:51 by CALEB Humphries) Aftercare following surgery of the genitourinary system Allergic rhinitis due to allergen Anxiety and depression Bilateral conjunctivitis Dysuria Encounter for screening for cardiovascular disorders Fatigue Hives Migraine headache Morbid obesity with BMI of 40.0-44.9, adult Recurrent boils Weight gain finding Surgical History S/P tubal ligation (01/25/20) Laparoscopic bilateral tubal fulguration with complete salpingectomy. Performed by Dr. Borrego at [facility] [place] [place] in [place], [place] Family History Father Heart disease Diabetes Mother Thyroid disease Grandfather Colon cancer maternal Heart disease paternal Social History Smoking and tobacco status: former smoker Second hand smoke exposure: No Alcohol intake: current Alcohol intake frequency: holidays/special occasions only Marital status: History of recent travel: No Nidhi/Anabaptist: Jainism Female Reproductive History: Para: 5 Spontaneous abortions: No Physical Exam Const: COMMON NORMALS: no acute distress and patient oriented x3 HENMT: COMMON NORMALS: normocephalic HEAD & SCALP: normocephalic MOUTH: Normal oral and palatal mucosa present THROAT: posterior oropharynx normal and uvula midline Eye: PERIORBITAL: periorbital findings normal EYELID: eyelids normal CONJUNCTIVA: Yes conjunctival abnormal positive bilateral conjunctival injection diffuse OTHER: Unable to perform fluorescein dye and lamp exam due to [facility] ED unit still under repair. Neck/C-Spine: COMMON NORMALS: supple GENERAL: Yes normal visual inspection Resp: COMMON NORMALS: normal respiratory effort, No retractions, No use of accessory muscles and clear to auscultation bilaterally AUSCULTATION: clear to auscultation bilaterally Cardio: COMMON NORMALS: regular rate, regular rhythm, S1 normal heart sound present, S2 normal heart sound present, No gallops present (Cardio), No clicks present (Cardio), No murmurs present (Cardio) and Peripheral pulses 2+ throughout RATE: regular rate RHYTHM: regular rhythm HEART SOUNDS: S1 normal heart sound present and S2 normal heart sound present PERIPHERAL PULSES: Peripheral pulses 2+ throughout GI: COMMON NORMALS: Normal to inspection, nondistended, normoactive bowel sounds present, Soft to palpation, non-tender and no masses PALPATION: Yes Soft to palpation : COMMON NORMALS: Yes no CVA tenderness BLADDER/KIDNEY EXAM: Yes no CVA tenderness Back/Pelvis: COMMON NORMALS: no CVA tenderness Extremity: COMMON NORMALS: normal to inspection Neuro: COMMON NORMALS: patient oriented x3 GAIT: Yes Normal gait present Skin: GENERAL SKIN EXAM: dry skin Course Vital Signs: Vital signs: Vital Signs Temperature 98.1 F 01/09/22 07:46 Pulse Rate 76 01/09/22 07:46 Respiratory Rate 18 01/09/22 07:46 Blood Pressure 143/93 01/09/22 07:46 Pulse Oximetry 97 01/09/22 07:46 Oxygen Delivery Me thod 01/09/22 07:46 MDM - Eye Problem Medical Decision Making Patient is a 36-year-old female comes to the ED with eye redness and pain. Patient wears contacts. She states that yesterday is when her symptoms started. She has been having bad allergies for the past couple weeks and yesterday she started developing some eye redness and pain bilaterally. Pain in left eye is worse than pain in her right eye. She says she is having a lot of excessive watering of her eyes which causes blurry vision. Any light causes eye pain. Denies any foreign body or injury to eyes. Vital stable. Exam shows conjunctival injection diffuse throughout both right and left eyes. Pupils were equal and reactive. Unable to perform fluorescein dye exam with lamp due to the lamp still being under repair. Patient was diagnosed with bilateral conjunctivitis and was discharged home with a prescription for Maxitrol eyedrops. Patient was told to contact [facility] tomorrow morning to set up an appoint with them for reevaluation. Strict return to ED precautions given. Patient understood agree with plan. Discharge Plan Discharge Patient Disposition: Home Clinical Impression: Bilateral conjunctivitis Qualifiers: Conjunctivitis type: acute Acute conjunctivitis type: unspecified Qualified Code(s): H10.33 - Unspecified acute conjunctivitis, bilateral Condition: Stable Prescriptions: New Maxitrol 3.5mg/mL-10,000 unit/mL-0.1 % drops,suspension 2 drp ophthalmic (eye) Q6H 7 Days Qty: 5 0RF No Action cholecalciferol (vitamin D3) PO cranberry extract PO nitrofurantoin monohyd/m-cryst [Macrobid] 100 mg capsule 100 mg PO BID Qty: 60 2RF Hold Instructions: Home Medication placed on hold at Doctor's office Rx Instructions: must administer with a meal/food prednisone 20 mg tablet 60 mg PO DAILY Qty: 15 0RF sulfamethoxazole-trimethoprim 800-160 mg tablet 1 tab PO BID Qty: 14 0RF celecoxib 200 mg capsule 200 mg PO BID Qty: 20 0RF sumatriptan succinate [Imitrex] 100 mg tablet See Rx Instructions PO .COMPLEX Qty: 9 0RF Rx Instructions: take 1 tab at onset of headache; if no relief, may repeat 1 tab after at least 2 hrs; max = 2 tabs/24 hrs PO venlafaxine [Effexor XR] 75 mg capsule,extended release 24hr 75 mg PO DAILY Qty: 90 1RF phenazopyridine [Pyridium] 200 mg tablet 200 mg PO TID PRN (Reason: pain) Qty: 20 0RF pantoprazole 40 mg tablet,delayed release (DR/EC) See Rx Instructions .ROUTE .COMPLEX Qty: 60 0RF Dose Instruction: TAKE 1 TABLET BY MOUTH TWICE DAILY Rx Instructions: TAKE 1 TABLET BY MOUTH TWICE DAILY [id number] 50-325-40 mg tablet 1 tab PO Q6H PRN (Reason: headache) Qty: 30 0RF Discharge Orders: Discharge ED (Routine); Ordered 01/09/22 Ordered By: Jorge Rea Referrals: Laureen Medina DO [Primary Care Provider] - Discharge Diet: Regular Discharge Activity: Increase activity as tolerated Activity Restrictions/Additional Instructions: Follow-up with medical provider as directed. Call [facility] today to set up an appointment for follow-up. ?phone number is [phone]. Address is [facility] [address] Alonso Duran. take medications as prescribed. Return to the ER or your medical provider if condition worsens. Please read and understand discharge instructions. If any questions, please ask. Coding Level of Care Code ED Ship Carpenter for Andreas Fwd Exam Comprehensive
== END 2022-01-09 09:07 | disposition home or self-care (01) ==
PROVIDERS: Emergency Provider Physician Assistant; PCP Family Medicine
DX: H10.33 Unspecified acute conjunctivitis, bilateral (principal); Z87.891 Personal history of nicotine dependence
CPT/HCPCS: 99283

== ENCOUNTER 2022-04-18 07:39 | Outpatient (CLI) | payer OTHER, SELFPAY ==
[2022-04-18 08:26] LABS: Basophils # 0.1 10^3/uL (0.0-0.1); Eosinophils # 0.2 10^3/uL (0.0-0.8); Eosinophils % 3.3 %; Hematocrit 46.2 % (37.0-47.0); Hemoglobin 14.5 g/dL (11.5-15.3); Lymphocytes # 1.8 10^3/uL (0.8-4.8); Lymphocytes % 25.2 %; Mean Corpuscular HGB Conc 31.4 g/dL (30.0-36.0); Mean Corpuscular Hemoglobin 28.5 pg (28.0-34.0); Mean Corpuscular Volume 90.8 fl (81-99); Mean Platelet Volume 9.4 fL (7.4-10.4); Monocytes # 0.7 10^3/uL (0.2-0.9); Monocytes % 10.5 %; Neutrophils # 4.19 10^3/uL (1.8-7.7); Neutrophils % 59.6 %; Nucleated Red Blood Cells % 0 %; Platelet Count 339 10^3/cmm (130-400); Red Blood Count 5.09 10^6/uL (4.1-5.3); Red Cell Distribution Width 12.6 % (12.1-15.1)
[2022-04-18 08:50] LABS: Alanine Aminotransferase 36 U/L (0-33); Albumin Level 3.7 g/dL (3.5-5.2); Alkaline Phosphatase 118 U/L (35-105); Blood Urea Nitrogen 9 mg/dL (6-20); Calcium 9.3 mg/dL (8.5-10.5); Carbon Dioxide 23 mmol/L (22-29); Chloride 106 mmol/L (98-107); Chol HDL Ratio 3.43 mg/dL (0.0-4.40); Cholesterol 175 mg/dL (0-200); Glomerular Filtration Rate 95.2 mL/min (90-130); Glucose 95 mg/dL (65-115); HDL Cholesterol 51 mg/dL (60-100); LDL Cholesterol Calculated 106 mg/dL (50-129); LDL HDL Ratio 2.08 RATIO (0.00-3.22); Osmolality Calculated 286 mOsm/kg (285-295); Sodium 139 mmol/L (136-145); Total Bilirubin 0.3 mg/dL (0.15-1.2); Total Protein 7.7 g/dL (6.6-8.7); Triglycerides 90 mg/dL (0-150)
[2022-04-18 08:51] LABS: Anion Gap 14.2 (5-19); Aspartate Amino Transferase 28 U/L (0-32); Potassium 4.2 mmol/L (3.5-5.1)
[2022-04-18 09:23] LABS: Thyroid Stimulating Hormone 1.75 uIU/mL (0.27-4.20)
== END 2022-04-18 07:40 | disposition home or self-care (01) ==
LOC: LAB 07:42
PROVIDERS: PCP Family Medicine; Visit Provider Family Medicine
DX: Z13.6 Encounter for screening for cardiovascular disorders (principal); Z79.899 Other long term (current) drug therapy
CPT/HCPCS: 36415; 80053; 80061; 84443; 85025

== ENCOUNTER 2022-07-21 19:42 | Emergency (ER) | payer OTHER, SELFPAY ==
[2022-07-21 20:11] VITALS: BP 130/93; PULSE 81; RESP 18; TEMP 36.6; O2SAT 98; BMI 38.4
--- NOTE | 2022-07-21 20:17 | ECG_ITS ---
[facility] Test Date: 2022-07-21 Pat Name: Cee Villalpando Department: Room: Gender: Female Cell Attendant: : 1985 Requested By: Clem Lei Order Number: [id number] Al MD: Alber Mckinney M.D. Measurements Intervals Brice Rate: 89 P: 65 PA: 162 QRS: 52 QRSD: 72 T: 49 QT: 337 QTc: 411 Interpretive Statements SINUS RHYTHM WITH SINUS ARRHYTHMIA No previous ECG available for comparison Electronically Signed On 07-22-2022 16:02:12 CDT by Alber Mckinney M.D. [email or web address]
--- NOTE | 2022-07-21 20:25 | ED_ITS ---
Documented by User: HERNANDO Diallo 07/21/22 21:38 HPI - Abdominal Pain General: Chief Complaint: Abdominal Pain Stated Complaint: abdomen pain, back pain Time Seen by Provider: 07/21/22 20:23 History of Present Illness: 36-year-old female comes in today with epigastric pain starting around 530 radiating to her back. Patient also had episodes of nausea without emesis. Patient has a history of GERD, obesity, and anxiety. Patient routinely takes Victoza and Effexor. Patient denies diabetes mellitus or depression. Patient's had a tubal ligation in 2019. Patient denies any other surgery or medical problems. Associated Symptoms: Reports nausea; Denies constipation, diarrhea, fever(s) and vomiting Review of Systems General: Reports: 10 or more systems reviewed and unremarkable except in HPI and below Const: Denies: fever(s) Card: Denies: chest pain Resp: Denies: pain on inspiration GI: Reports: nausea; Denies: vomiting, diarrhea or constipation : Denies: difficulty voiding Skin/Breast: Reports: rash PFSH ED PFSH: Medical History Aftercare following surgery of the genitourinary system Allergic rhinitis due to allergen Anxiety and depression Bilateral conjunctivitis Dysuria Encounter for screening for cardiovascular disorders Fatigue Hives Migraine headache Morbid obesity with BMI of 40.0-44.9, adult Recurrent boils Weight gain finding Surgical History S/P tubal ligation (01/25/20) Laparoscopic bilateral tubal fulguration with complete salpingectomy. Performed by Dr. Borrego at [facility] [place] in [place], [place] Family History Father Heart disease Diabetes Mother Thyroid disease Grandfather Colon cancer maternal Heart disease paternal Social History Smoking and tobacco status: former smoker Second hand smoke exposure: No Alcohol intake: current Alcohol intake frequency: holidays/special occasions only Marital status: Nidhi/Sabianist: Jehovah'S Witness Female Reproductive History: Para: 5 Spontaneous abortions: No Physical Exam Const: COMMON NORMALS: alert HENMT: COMMON NORMALS: normocephalic HEAD & SCALP: normocephalic MOUTH: Normal oral and palatal mucosa present Neck/C-Spine: COMMON NORMALS: full ROM Resp: COMMON NORMALS: normal respiratory effort and clear to auscultation bilaterally AUSCULTATION: clear to auscultation bilaterally Cardio: COMMON NORMALS: regular rate and regular rhythm RATE: regular rate RHYTHM: regular rhythm GI: COMMON NORMALS: Soft to palpation AUSCULTATION: Yes normoactive bowel sounds PALPATION: Yes Soft to palpation and Yes Tenderness to palpation present (GI) (Midepigastric) : COMMON NORMALS: Yes no CVA tenderness BLADDER/KIDNEY EXAM: Yes no CVA tenderness Back/Pelvis: COMMON NORMALS: no CVA tenderness Extremity: COMMON NORMALS: no pedal edema Neuro: SENSORIUM/ORIENTATION: Yes alert Skin: COMMON NORMALS: turgor normal GENERAL SKIN EXAM: turgor normal Course Vital Signs: Vital signs: Vital Signs Temperature 97.9 F 07/21/22 20:11 Pulse Rate 85 07/21/22 21:37 Respiratory Rate 16 07/21/22 21:37 Blood Pressure 130/78 07/21/22 21:37 Pulse Oximetry 95 07/21/22 21:37 Oxygen Delivery Me thod 07/21/22 20:41 MDM - Abdominal Pain Medical Decision Making 36-year-old female comes in today for complaints of epigastric pain radiating to the back. Patient reports pain started about 1700 today. On exam abdomen is tender in the midepigastric region. No CVA tenderness. Bowel sounds are active. Abdomen soft. Differential diagnosis includes but not limited to gastritis, cholecystitis, cholelithiasis, pancreatitis, urinary tract infection. Laboratory values were unremarkable except for some elevation in liver enzymes. Normal bilirubin. Normal lipase. Ultrasound of the gallbladder noted cholelithiasis without signs of cholecystitis. Reviewed exam with patient with recommendations for treatment and follow-up with surgeon for further evaluation and treatment. Patient's pain was brought under control with Zofran, ketorolac, and morphine. Patient was written prescriptions for hydrocodone, dicyclomine, and Zofran. Patient reported understanding of care plan and need for follow-up or return to the ER for worsening symptoms. Lab Data 07/21/22 20:12 07/21/22 20:12 Labs/Radiology: Radiology Impressions Gallbladder Ultrasound 07/21/22 20:33 IMPRESSION: 1. Cholelithiasis with gallbladder wall thickening to 4.2 mm, findings may perhaps reflect a developing cholecystitis, nuclear medicine HIDA scan could further evaluate this as clinically indicated. 2. Hepatic steatosis. Laboratory Results WBC 13.0 10^3/uL (4.0-10.0) H 07/21/22 20:12 RBC 5.32 10^6/uL (4.1-5.3) H 07/21/22 20:12 Hgb 15.2 g/dL (11.5-15.3) 07/21/22 20:12 Hct 45.7 % (37.0-47.0) 07/21/22 20:12 MCV 85.9 fl (81-99) 07/21/22 20:12 MCH 28.6 pg (28.0-34.0) 07/21/22 20:12 MCHC 33.3 g/dL (30.0-36.0) 07/21/22 20:12 RDW 12.1 % (12.1-15.1) 07/21/22 20:12 Plt Count 371 10^3/cmm (130-400) 07/21/22 20:12 MPV 9.4 fL (7.4-10.4) 07/21/22 20:12 Neut % (Auto) 74.1 % 07/21/22 20:12 Lymph % (Auto) 16.4 % 07/21/22 20:12 Mathews % (Auto) 7.5 % 07/21/22 20:12 Eos % (Auto) 1.0 % 07/21/22 20:12 Baso % (Auto) 0.5 % 07/21/22 20:12 Neut # (Auto) 9.63 10^3/uL (1.8-7.7) H 07/21/22 20:12 Lymph # (Auto) 2.1 10^3/uL (0.8-4.8) 07/21/22 20:12 Mathews # (Auto) 1.0 10^3/uL (0.2-0.9) H 07/21/22 20:12 Eos # (Auto) 0.1 10^3/uL (0.0-0.8) 07/21/22 20:12 Baso # (Auto) 0.1 10^3/uL (0.0-0.1) 07/21/22 20:12 Nucleated RBC % (auto) 0 % 07/21/22 20:12 Nucleated RBCs # 0.0 /100WBC 07/21/22 20:12 Sodium 142 mmol/L (136-145) 07/21/22 20:12 Potassium 4.0 mmol/L (3.5-5.1) 07/21/22 20:12 Chloride 105 mmol/L (98-107) 07/21/22 20:12 Carbon Dioxide 26 mmol/L (22-29) 07/21/22 20:12 Anion Gap 15.0 (5-19) 07/21/22 20:12 BUN 12 mg/dL (6-20) 07/21/22 20:12 Creatinine 0.7 mg/dL (0.5-0.9) 07/21/22 20:12 GFR Calculation 95.2 mL/min (90-130) 07/21/22 20:12 Glucose 80 mg/dL (65-115) 07/21/22 20:12 Calculated Osmolality 293 mOsm/kg (285-295) 07/21/22 20:12 Calcium 9.8 mg/dL (8.5-10.5) 07/21/22 20:12 Total Bilirubin 0.2 mg/dL (0.15-1.2) 07/21/22 20:12 AST 55 U/L (0-32) H 07/21/22 20:12 ALT 54 U/L (0-33) H 07/21/22 20:12 Alkaline Phosphatase 134 U/L (35-105) H 07/21/22 20:12 Total Protein 8.3 g/dL (6.6-8.7) 07/21/22 20:12 Albumin 4.6 g/dL (3.5-5.2) 07/21/22 20:12 Globulin 3.7 g/dL (1.3-4.6) 07/21/22 20:12 Lipase 35 U/L (13-60) 07/21/22 20:12 HCG, Qual Negative (Negative) 07/21/22 20:12 Urine Color Yellow (Yellow) 07/21/22 21:14 Urine Appearance Cloudy (CLEAR) A 07/21/22 21:14 Urine pH 8 (5-7) H 07/21/22 21:14 Ur Specific Bennet 1.010 (1.005-1.030) 07/21/22 21:14 Urine Protein Neg (Negative) 07/21/22 21:14 Urine Glucose (UA) 1+ (Normal) H 07/21/22 21:14 Urine Ketones Negative (Negative) 07/21/22 21:14 Urine Blood Neg (Negative) 07/21/22 21:14 Urine Nitrate Negative (Negative) 07/21/22 21:14 Urine Bilirubin Neg (Negative) 07/21/22 21:14 Prot Sulfosalicylic Acd Negative (Negative) 07/21/22 21:14 Urine Urobilinogen Norm mg/dL (Negative) 07/21/22 21:14 Ur Leukocyte Esterase 1+ (Negative) H 07/21/22 21:14 Urine RBC 0-4 /hpf (0-2) H 07/21/22 21:14 Urine WBC 5-10 /hpf (0-5) H 07/21/22 21:14 Ur Squamous Epith Cells 10-15 /hpf (0-5) H 07/21/22 21:14 Amorphous Sediment 4+ /hpf 07/21/22 21:14 Urine Bacteria Trace /hpf (NONE) 07/21/22 21:14 Discharge Plan Discharge Patient Disposition: Home Clinical Impression: Cholelithiases Qualifiers: Cholelithiasis location: gallbladder Cholecystitis presence: without cholecystitis Biliary obstruction: without biliary obstruction Qualified Code(s): K80.20 - Calculus of gallbladder without cholecystitis without obstruction Condition: Stable Prescriptions: New ondansetron 4 mg tablet,disintegrating 4 mg PO Q8H PRN (Reason: nausea and vomiting) Qty: 10 0RF hydrocodone-acetaminophen 5-325 mg tablet 1 tab PO Q6H PRN (Reason: pain (scale score 7-10)) Qty: 10 0RF dicyclomine 20 mg tablet 20 mg PO TID PRN (Reason: gall bladder colic) Qty: 30 0RF No Action cholecalciferol (vitamin D3) PO cranberry extract PO nitrofurantoin monohyd/m-cryst [Macrobid] 100 mg capsule 100 mg PO BID Qty: 60 2RF Hold Instructions: Home Medication placed on hold at Doctor's office Rx Instructions: must administer with a meal/food prednisone 20 mg tablet 60 mg PO DAILY Qty: 15 0RF sulfamethoxazole-trimethoprim 800-160 mg tablet 1 tab PO BID Qty: 14 0RF celecoxib 200 mg capsule 200 mg PO BID Qty: 20 0RF qbufvvecnt-blfwtls-aoblteur 50-325-40 mg tablet 1 tab PO Q6H PRN (Reason: headache) Qty: 30 0RF Victoza 3-Francisco 0.6 mg/0.1 mL (18 mg/3 mL) pen injector 1.8 mg SUBCUT DAILY Qty: 9 1RF venlafaxine [Effexor XR] 75 mg capsule,extended release 24hr 75 mg PO DAILY Qty: 90 1RF phenazopyridine [Pyridium] 200 mg tablet 200 mg PO TID PRN (Reason: pain) Qty: 20 0RF pantoprazole 40 mg tablet,delayed release (DR/EC) See Rx Instructions .ROUTE .COMPLEX Qty: 60 0RF Dose Instruction: TAKE 1 TABLET BY MOUTH TWICE DAILY Rx Instructions: TAKE 1 TABLET BY MOUTH TWICE DAILY sumatriptan succinate [Imitrex] 100 mg tablet See Rx Instructions PO .COMPLEX Qty: 9 0RF Rx Instructions: take 1 tab at onset of headache; if no relief, may repeat 1 tab after at least 2 hrs; max = 2 tabs/24 hrs PO Discharge Orders: Discharge ED (Routine); Ordered 07/21/22 Ordered By: Ritchie Waite Referrals: Laureen Medina DO [Primary Care Provider] - Discharge Diet: Advance as tolerated Discharge Activity: Increase activity as tolerated Patient Instructions: Gallstones (ED) Activity Restrictions/Additional Instructions: Rest. Drink plenty of water and fluids. Eat a clear liquid diet until pain resolves. Use acetaminophen and ibuprofen for pain relief. Use hydrocodone for severe pain relief. Use dicyclomine as needed for spasms or colicky pain. Case management will contact you within the next 24 to 48 hours for follow-up a ppointment with the surgeon. Return to ER for worsening symptoms such as fever greater than 100.4, blood in vomit or stool, uncontrolled pain. Coding Level of Care Code ED Drill Rig Operator Helper for Chg Fwd Documented by User: Khoi Goddard DO 07/22/22 00:21 HPI - Abdominal Pain General: Chief Complaint: Abdominal Pain Stated Complaint: abdomen pain, back pain Time Seen by Provider: 07/21/22 20:23 PFSH ED PFSH: Medical History Aftercare following surgery of the genitourinary system Allergic rhinitis due to allergen Anxiety and depression Bilateral conjunctivitis Dysuria Encounter for screening for cardiovascular disorders Fatigue Hives Migraine headache Morbid obesity with BMI of 40.0-44.9, adult Recurrent boils Weight gain finding Surgical History S/P tubal ligation (01/25/20) Laparoscopic bilateral tubal fulguration with complete salpingectomy. Performed by Dr. Borrego at [facility] [place] in [place], [place] Family History Father Heart disease Diabetes Mother Thyroid disease Grandfather Colon cancer maternal Heart disease paternal Social History Smoking and tobacco status: former smoker Second hand smoke exposure: No Alcohol intake: current Alcohol intake frequency: holidays/special occasions only Marital status: Nidhi/Sabianist: Jehovah'S Witness Course Vital Signs: Vital signs: Vital Signs Temperature 97.9 F 07/21/22 20:11 Pulse Rate 85 07/21/22 21:37 Respiratory Rate 16 07/21/22 21:37 Blood Pressure 130/78 07/21/22 21:37 Pulse Oximetry 95 07/21/22 21:37 Oxygen Delivery Me thod 07/21/22 20:41 MDM - Abdominal Pain Medical Decision Making 36-year-old female comes in today for complaints of epigastric pain radiating to the back. Patient reports pain started about 1700 today. On exam abdomen is tender in the midepigastric region. No CVA tenderness. Bowel sounds are active. Abdomen soft. Differential diagnosis includes but not limited to gastritis, cholecystitis, cholelithiasis, pancreatitis, urinary tract infection. Laboratory values were unremarkable except for some elevation in liver enzymes. Normal bilirubin. Normal lipase. Ultrasound of the gallbladder noted cholelithiasis without signs of cholecystitis. Reviewed exam with patient with recommendations for treatment and follow-up with surgeon for further evaluation and treatment. Patient's pain was brought under control with Zofran, ketorolac, and morphine. Patient was written prescriptions for hydrocodone, dicyclomine, and Zofran. Patient reported understanding of care plan and need for follow-up or return to the ER for worsening symptoms. This patient was originally seen by HERNANDO Ghotra.? I agree with his history, evaluation, and treatment. Lab Data 07/21/22 20:12 07/21/22 20:12 Labs/Radiology: Radiology Impressions Gallbladder Ultrasound 07/21/22 20:33 IMPRESSION: 1. Cholelithiasis with gallbladder wall thickening to 4.2 mm, findings may perhaps reflect a developing cholecystitis, nuclear medicine HIDA scan could further evaluate this as clinically indicated. 2. Hepatic steatosis. Laboratory Results WBC 13.0 10^3/uL (4.0-10.0) H 07/21/22 20:12 RBC 5.32 10^6/uL (4.1-5.3) H 07/21/22 20:12 Hgb 15.2 g/dL (11.5-15.3) 07/21/22 20:12 Hct 45.7 % (37.0-47.0) 07/21/22 20:12 MCV 85.9 fl (81-99) 07/21/22 20:12 MCH 28.6 pg (28.0-34.0) 07/21/22 20:12 MCHC 33.3 g/dL (30.0-36.0) 07/21/22 20:12 RDW 12.1 % (12.1-15.1) 07/21/22 20:12 Plt Count 371 10^3/cmm (130-400) 07/21/22 20:12 MPV 9.4 fL (7.4-10.4) 07/21/22 20:12 Neut % (Auto) 74.1 % 07/21/22 20:12 Lymph % (Auto) 16.4 % 07/21/22 20:12 Mathews % (Auto) 7.5 % 03/19/23 20:12 Eos % (Auto) 1.0 % 07/21/22 20:12 Baso % (Auto) 0.5 % 07/21/22 20:12 Neut # (Auto) 9.63 10^3/uL (1.8-7.7) H 07/21/22 20:12 Lymph # (Auto) 2.1 10^3/uL (0.8-4.8) 07/21/22 20:12 Mathews # (Auto) 1.0 10^3/uL (0.2-0.9) H 07/21/22 20:12 Eos # (Auto) 0.1 10^3/uL (0.0-0.8) 07/21/22 20:12 Baso # (Auto) 0.1 10^3/uL (0.0-0.1) 07/21/22 20:12 Nucleated RBC % (auto) 0 % 07/21/22 20:12 Nucleated RBCs # 0.0 /100WBC 07/21/22 20:12 Sodium 142 mmol/L (136-145) 07/21/22 20:12 Potassium 4.0 mmol/L (3.5-5.1) 07/21/22 20:12 Chloride 105 mmol/L (98-107) 07/21/22 20:12 Carbon Dioxide 26 mmol/L (22-29) 07/21/22 20:12 Anion Gap 15.0 (5-19) 07/21/22 20:12 BUN 12 mg/dL (6-20) 07/21/22 20:12 Creatinine 0.7 mg/dL (0.5-0.9) 07/21/22 20:12 GFR Calculation 95.2 mL/min (90-130) 07/21/22 20:12 Glucose 80 mg/dL (65-115) 07/21/22 20:12 Calculated Osmolality 293 mOsm/kg (285-295) 07/21/22 20:12 Calcium 9.8 mg/dL (8.5-10.5) 07/21/22 20:12 Total Bilirubin 0.2 mg/dL (0.15-1.2) 07/21/22 20:12 AST 55 U/L (0-32) H 07/21/22 20:12 ALT 54 U/L (0-33) H 07/21/22 20:12 Alkaline Phosphatase 134 U/L (35-105) H 07/21/22 20:12 Total Protein 8.3 g/dL (6.6-8.7) 07/21/22 20:12 Albumin 4.6 g/dL (3.5-5.2) 07/21/22 20:12 Globulin 3.7 g/dL (1.3-4.6) 07/21/22 20:12 Lipase 35 U/L (13-60) 07/21/22 20:12 HCG, Qual Negative (Negative) 07/21/22 20:12 Urine Color Yellow (Yellow) 07/21/22 21:14 Urine Appearance Cloudy (CLEAR) A 07/21/22 21:14 Urine pH 8 (5-7) H 07/21/22 21:14 Ur Specific Bennet 1.010 (1.005-1.030) 07/21/22 21:14 Urine Protein Neg (Negative) 07/21/22 21:14 Urine Glucose (UA) 1+ (Normal) H 07/21/22 21:14 Urine Ketones Negative (Negative) 07/21/22 21:14 Urine Blood Neg (Negative) 07/21/22 21:14 Urine Nitrate Negative (Negative) 07/21/22 21:14 Urine Bilirubin Neg (Negative) 07/21/22 21:14 Prot Sulfosalicylic Acd Negative (Negative) 07/21/22 21:14 Urine Urobilinogen Norm mg/dL (Negative) 07/21/22 21:14 Ur Leukocyte Esterase 1+ (Negative) H 07/21/22 21:14 Urine RBC 0-4 /hpf (0-2) H 07/21/22 21:14 Urine WBC 5-10 /hpf (0-5) H 07/21/22 21:14 Ur Squamous Epith Cells 10-15 /hpf (0-5) H 07/21/22 21:14 Amorphous Sediment 4+ /hpf 07/21/22 21:14 Urine Bacteria Trace /hpf (NONE) 07/21/22 21:14 Discharge Plan Discharge Patient Disposition: Home Clinical Impression: Cholelithiases Qualifiers: Cholelithiasis location: gallbladder Cholecystitis presence: without cholecystitis Biliary obstruction: without biliary obstruction Qualified Code(s): K80.20 - Calculus of gallbladder without cholecystitis without obstruction Condition: Stable Prescriptions: New ondansetron 4 mg tablet,disintegrating 4 mg PO Q8H PRN (Reason: nausea and vomiting) Qty: 10 0RF hydrocodone-acetaminophen 5-325 mg tablet 1 tab PO Q6H PRN (Reason: pain (scale score 7-10)) Qty: 10 0RF dicyclomine 20 mg tablet 20 mg PO TID PRN (Reason: gall bladder colic) Qty: 30 0RF No Action cholecalciferol (vitamin D3) PO cranberry extract PO nitrofurantoin monohyd/m-cryst [Macrobid] 100 mg capsule 100 mg PO BID Qty: 60 2RF Hold Instructions: Home Medication placed on hold at Doctor's office Rx Instructions: must administer with a meal/food prednisone 20 mg tablet 60 mg PO DAILY Qty: 15 0RF sulfamethoxazole-trimethoprim 800-160 mg tablet 1 tab PO BID Qty: 14 0RF celecoxib 200 mg capsule 200 mg PO BID Qty: 20 0RF isqhohzfcv-xxkfico-yqxmhtlw 50-325-40 mg tablet 1 tab PO Q6H PRN (Reason: headache) Qty: 30 0RF Victoza 3-Francisco 0.6 mg/0.1 mL (18 mg/3 mL) pen injector 1.8 mg SUBCUT DAILY Qty: 9 1RF venlafaxine [Effexor XR] 75 mg capsule,extended release 24hr 75 mg PO DAILY Qty: 90 1RF phenazopyridine [Pyridium] 200 mg tablet 200 mg PO TID PRN (Reason: pain) Qty: 20 0RF pantoprazole 40 mg tablet,delayed release (DR/EC) See Rx Instructions .ROUTE .COMPLEX Qty: 60 0RF Dose Instruction: TAKE 1 TABLET BY MOUTH TWICE DAILY Rx Instructions: TAKE 1 TABLET BY MOUTH TWICE DAILY sumatriptan succinate [Imitrex] 100 mg tablet See Rx Instructions PO .COMPLEX Qty: 9 0RF Rx Instructions: take 1 tab at onset of headache; if no relief, may repeat 1 tab after at l east 2 hrs; max = 2 tabs/24 hrs PO Discharge Orders: Discharge ED (Routine); Ordered 07/21/22 Ordered By: Ritchie Waite Referrals: Laureen Medina DO [Primary Care Provider] - Discharge Diet: Advance as tolerated Discharge Activity: Increase activity as tolerated Patient Instructions: Gallstones (ED) Activity Restrictions/Additional Instructions: Rest. Drink plenty of water and fluids. Eat a clear liquid diet until pain resolves. Use acetaminophen and ibuprofen for pain relief. Use hydrocodone for severe pain relief. Use dicyclomine as needed for spasms or colicky pain. Case management will contact you within the next 24 to 48 hours for follow-up appointment with the surgeon. Return to ER for worsening symptoms such as fever greater than 100.4, blood in vomit or stool, uncontrolled pain. Coding Level of Care Code ED Drill Rig Operator Helper for Andreas Santos
--- NOTE | 2022-07-21 20:33 | USR_ITS ---
PROCEDURE INFORMATION: Exam: US Abdomen, Limited; Right Upper Quadrant Exam date and time: 07/21/2022 8:45 PM Age: 36 years old Clinical indication: Abdominal pain; Epigastric; Additional info: Epigastric pain radiating to back TECHNIQUE: Imaging protocol: Real time ultrasound of the abdomen with image documentation. Limited exam focused on the right upper quadrant. COMPARISON: US abdomen limited [id number] 01/22/2018 4:11 PM FINDINGS: Liver: Hepatic steatosis. Gallbladder: Cholelithiasis with gallbladder wall thickening to 4.2 mm, findings may perhaps reflect a developing cholecystitis, nuclear medicine HIDA scan could further evaluate this as clinically indicated. Biliary ducts: Normal. No stones. No dilation. Pancreas: Visualized pancreas is unremarkable. Right kidney: Normal. No mass. No hydronephrosis. US/US gall bladder [id number] IMPRESSION: 1. Cholelithiasis with gallbladder wall thickening to 4.2 mm, findings may perhaps reflect a developing cholecystitis, nuclear medicine HIDA scan could further evaluate this as clinically indicated. 2. Hepatic steatosis.
[2022-07-21 20:43] LABS: Basophils # 0.1 10^3/uL (0.0-0.1); Basophils % 0.5 %; Eosinophils # 0.1 10^3/uL (0.0-0.8); Hematocrit 45.7 % (37.0-47.0); Hemoglobin 15.2 g/dL (11.5-15.3); Lymphocytes # 2.1 10^3/uL (0.8-4.8); Lymphocytes % 16.4 %; Mean Corpuscular HGB Conc 33.3 g/dL (30.0-36.0); Mean Corpuscular Hemoglobin 28.6 pg (28.0-34.0); Mean Corpuscular Volume 85.9 fl (81-99); Mean Platelet Volume 9.4 fL (7.4-10.4); Monocytes % 7.5 %; Neutrophils # 9.63 10^3/uL (1.8-7.7); Neutrophils % 74.1 %; Nucleated Red Blood Cells % 0 %; Platelet Count 371 10^3/cmm (130-400); Red Blood Count 5.32 10^6/uL (4.1-5.3); Red Cell Distribution Width 12.1 % (12.1-15.1)
[2022-07-21 20:57] LABS: HCG, Serum Qual Negative (Negative)
[2022-07-21 21:04] LABS: Alanine Aminotransferase 54 U/L (0-33); Albumin Level 4.6 g/dL (3.5-5.2); Alkaline Phosphatase 134 U/L (35-105); Aspartate Amino Transferase 55 U/L (0-32); Blood Urea Nitrogen 12 mg/dL (6-20); Calcium 9.8 mg/dL (8.5-10.5); Carbon Dioxide 26 mmol/L (22-29); Chloride 105 mmol/L (98-107); Globulin 3.7 g/dL (1.3-4.6); Glomerular Filtration Rate 95.2 mL/min (90-130); Glucose 80 mg/dL (65-115); Lipase 35 U/L (13-60); Osmolality Calculated 293 mOsm/kg (285-295); Sodium 142 mmol/L (136-145); Total Bilirubin 0.2 mg/dL (0.15-1.2); Total Protein 8.3 g/dL (6.6-8.7)
[2022-07-21] MEDS: ketorolac 30 mg/mL INJ 15 MG IVP (21:17)
[2022-07-21 21:19] VITALS: RESP 18
[2022-07-21] MEDS: morphine 4 mg/mL SDV 1 mL 2 MG IVP (21:19)
[2022-07-21] MEDS: ondansetron 2 mg/ML SDV 2 mL 4 MG IVP (21:26)
[2022-07-21 21:37] VITALS: BP 130/78; PULSE 85; RESP 16; O2SAT 95
[2022-07-21 22:04] LABS: Add Urine Culture? No; Add Urine Microscopic? YES; Amorphous Sediment Urine 4+ /hpf; Bacteria Urine TRACE /hpf; Bilirubin Urine Neg (Negative); Blood Urine Neg (Negative); Glucose Urine UA 1+ (Normal); Ketones Urine Negative (Negative); Leukocyte Esterase Urine 1+ (Negative); Nitrate Urine Negative (Negative); Protein Urine Neg (Negative); RBC Urine 0-4 /hpf (0-2); Sulfosalicylic Acid Urine Negative (Negative); Urine Appearance Cloudy (CLEAR); Urine Color Yellow (Yellow); Urobilinogen Urine Norm (Negative); pH Urine 8 (5-7)
--- NOTE | 2022-07-22 10:01 | DCPLANNER ---
Addendum entered by Rafaela Aguiar 08/23/22 08:17: This appointment was cancelled Addendum entered by Rafaela Aguiar 07/23/22 08:10: Patient has a follow up appointment scheduled for Saturday, August 20, 2022 at 9:[address] Carr at general surgery. Clinic will call patient with appointment information. Original Note: manager training had message to schedule a follow up appointment for patient with general surgery. manager training sent patients information to the front office staff at general surgery. Patients information will be printed and reviewed. Clinic will call patient with appointment information.
== END 2022-07-21 21:37 | disposition home or self-care (01) ==
PROVIDERS: Emergency Provider Nurse Practitioner Family; PCP Family Medicine
DX: K80.20 Calculus of gallbladder without cholecystitis without obstruction (principal); K76.0 Fatty (change of) liver, not elsewhere classified; Z87.891 Personal history of nicotine dependence
CPT/HCPCS: 76705; 80053; 81001; 83690; 84703; 85025; 93005; 96374; 96375; 99285; J1885; J2270; J2405

== ENCOUNTER 2022-07-31 07:36 | Outpatient (CLI) | payer OTHER, SELFPAY ==
--- NOTE | 2022-07-31 07:51 | XR_ITS ---
WS: [id number] Exam: XR chest 2V* [id number] Date/Time of Exam: 07/31/2022 7:57 AM Reason For Exam: PRE SURGERY TESTING/ASTHMA Comparison 09/09/2012. Findings: The lungs are clear and fully expanded. Costophrenic angles are sharp. No infiltrates. Bronchovascula r relief appears normal. Cardiac silhouette is unremarkable. Bony elements are intact. XR/XR chest 2V* [id number] IMPRESSION: Unremarkable chest radiograph.
== END 2022-07-31 07:37 | disposition home or self-care (01) ==
LOC: RAD 07:40
PROVIDERS: PCP Family Medicine; Visit Provider Internal Medicine Cardiovascular Disease
DX: Z01.818 Encounter for other preprocedural examination (principal); J45.909 Unspecified asthma, uncomplicated
CPT/HCPCS: 71046

== ENCOUNTER → 2022-09-16 08:03 | Outpatient (BNVA) | payer OTHER, SELFPAY | PROVIDERS: PCP Family Medicine | DX: J02.9 Acute pharyngitis, unspecified (principal) | CPT/HCPCS: 87880 ==

== ENCOUNTER → 2023-02-05 17:46 | Outpatient (BNVA) | payer OTHER, SELFPAY | PROVIDERS: PCP Family Medicine; Visit Provider Registered Nurse Neonatal Intensive Care | DX: J02.9 Acute pharyngitis, unspecified (principal); R05.9 Cough, unspecified | CPT/HCPCS: 87400; 87426; 87880 ==

== ENCOUNTER → 2024-05-05 12:27 | Outpatient (BNVA) | payer OTHER, SELFPAY | PROVIDERS: PCP Family Medicine; Visit Provider Nurse Practitioner | DX: N39.0 Urinary tract infection, site not specified (principal) | CPT/HCPCS: 81000; 87086 ==